=== PATIENT | female | born 1975 | race Caucasian/White ===

== ENCOUNTER 2023-04-29 09:20 | Outpatient (OUT) | payer OTHER, SELFPAY ==
[2023-04-29 09:48] LABS: Basophils Absolute Auto 0.1 10^3/uL (0.0-0.1); Basophils Percent Auto 0.8 % (0.2-2.0); Eosinophils Absolute Auto 0.2 10^3/uL (0.0-0.7); Eosinophils Percent Auto 2.3 % (0.9-7.0); Hematocrit 38.8 % (36.0-48.0); Hemoglobin 12.8 g/dL (12.0-16.0); Immature Granulocytes Abs Auto 0.02 10^3/uL (0.00-0.03); Immature Granulocytes Pct Auto 0.3 % (0.0-0.5); Lymphocytes Percent Auto 15.3 % (20.5-60.0); Mean Corpuscular Hemoglobin 31.7 pg (26.7-34.0); Mean Platelet Volume 9.2 fL (9.5-13.5); Monocytes Absolute Auto 0.5 10^3/uL (0.3-0.8); Monocytes Percent Auto 8.4 % (1.7-12.0); Neutrophils Absolute Auto 4.7 10^3/uL (1.4-6.5); Neutrophils Percent Auto 72.9 % (43.0-75.0); Platelet Count 247 10^3/uL (150-450); Red Blood Count 4.04 10^6/uL (4.20-5.40); Red Cell Distribution Width 12.3 % (11.0-15.0); White Blood Count 6.5 10^3/uL (4.0-11.0)
[2023-04-29 10:48] LABS: Alanine Aminotransferase 24 U/L (14-59); Albumin Globulin Ratio 1.1; Albumin Level 3.8 g/dL (3.4-5.0); Alkaline Phosphatase 80 U/L (46-116); Anion Gap 9.3; Aspartate Amino Transferase 21 U/L (15-37); BUN Creatinine Ratio 15.6; Bilirubin Total 0.4 mg/dL (0.2-1.0); Calcium 8.6 mg/dL (8.5-10.1); Carbon Dioxide 29.8 mmol/L (21.0-32.0); Chloride 104 mmol/L (98-107); Chol HDL Ratio 3.2; Cholesterol 235 mg/dL (<=200); Estimated GFR (African America >60 (>=60); Estimated GFR (Non-African Ame >60 (>=60); Globulin 3.4 g/dL; Glucose 82 mg/dL (74-106); HDL Cholesterol 74 mg/dL (40-60); Potassium 4.1 mmol/L (3.5-5.1); Sodium 139 mmol/L (136-145); Thyroid Stimulating Hormone 1.477 uIU/mL (0.358-3.740); Total Protein 7.2 g/dL (6.4-8.2); Triglycerides 52 mg/dL (<=150); VLDL CHOLESTEROL 10.4 mg/dL
== END 2023-04-29 09:21 | disposition home or self-care (01) ==
LOC: LAB 09:23
PROVIDERS: PCP Internal Medicine; Visit Provider Internal Medicine
DX: Z00.00 Encounter for general adult medical examination without abnormal findings (principal)
CPT/HCPCS: 36415; 80053; 80061; 84443; 85025

== ENCOUNTER 2023-06-21 10:39 | Outpatient (OUT) | payer OTHER, SELFPAY ==
--- NOTE | 2023-06-21 10:41 | MM_ITS ---
Patient: KATE KWON Exam Date: 06/21/2023 : 1975 Gender:F Ordering : DR Rodri Lai D.O. Admission #: [id number] Family : Order #: [id number] CLICK HERE TO VIEW EXAM RADIOLOGY REPORT PROCEDURE: MM TOMOSYNTHESIS SCREENING BI COMPARISON: MG MAMM SCREEN 3D [place] CAD, 06/17/2022. INDICATIONS: Screening mammogram Z12.31 Calculator Name NCI Breast Cancer Risk Assessment Tool 5 Year Breast Cancer Risk 1.00% Lifetime Breast Cancer Risk 10.00% Personal Breast Cancer No Personal Ovarian Cancer No Treatments None Family Cancers Aunt-maternal with uterine cancer at age ~62. LOCATION: [facility] BREAST COMPOSITION: Heterogeneously dense, which may obscure small masses. FINDINGS: DIAGNOSTIC CATEGORY 1--NEGATIVE. NO CHANGE FROM COMPARISON ASSESSMENT. RIGHT BREAST: No significant suspicious finding. LEFT BREAST: No significant suspicious finding. RECOMMENDATIONS: ROUTINE MAMMOGRAM AND CLINICAL EVALUATION IN 12 MONTHS. PLEASE NOTE: A NORMAL MAMMOGRAM DOES NOT EXCLUDE THE POSSIBILITY OF BREAST CANCER. A CLINICALLY SUSPICIOUS PALPABLE LUMP SHOULD BE BIOPSIED. Dictated by: Zion Hunter MD on 06/21/2023 at 11:41 Approved by: Zion Hunter MD on 06/21/2023 at 11:56
== END 2023-06-21 10:40 | disposition home or self-care (01) ==
LOC: MAMMO 10:40
PROVIDERS: PCP Internal Medicine; Visit Provider Internal Medicine
DX: Z12.31 Encounter for screening mammogram for malignant neoplasm of breast (principal); Z80.8 Family history of malignant neoplasm of other organs or systems
CPT/HCPCS: 77063; 77067

== ENCOUNTER 2024-05-07 09:21 | Outpatient (OUT) | payer OTHER, SELFPAY ==
[2024-05-07 10:20] LABS: Estimated Average Glucose 97 mg/dL
[2024-05-07 10:29] LABS: Basophils Percent Auto 0.4 % (0.2-2.0); Eosinophils Absolute Auto 0.2 10^3/uL (0.0-0.7); Hematocrit 42.8 % (36.0-48.0); Hemoglobin 14.2 g/dL (12.0-16.0); Immature Granulocytes Abs Auto 0.02 10^3/uL (0.00-0.03); Immature Granulocytes Pct Auto 0.3 % (0.0-0.5); Lymphocytes Absolute Auto 1.7 10^3/uL (1.2-3.8); Lymphocytes Percent Auto 22.6 % (20.5-60.0); Mean Corpuscular HGB Conc 33.2 g/dL (29.9-35.2); Mean Corpuscular Hemoglobin 31.8 pg (26.7-34.0); Mean Corpuscular Volume 95.7 fL (81.0-99.0); Mean Platelet Volume 9.5 fL (9.5-13.5); Monocytes Absolute Auto 0.6 10^3/uL (0.3-0.8); Monocytes Percent Auto 7.8 % (1.7-12.0); Neutrophils Percent Auto 66.9 % (43.0-75.0); Platelet Count 289 10^3/uL (150-450); Red Blood Count 4.47 10^6/uL (4.20-5.40); Red Cell Distribution Width 12.8 % (11.0-15.0); White Blood Count 7.5 10^3/uL (4.0-11.0)
[2024-05-07 10:36] LABS: Alanine Aminotransferase 34 U/L (14-59); Albumin Globulin Ratio 1.1; Alkaline Phosphatase 92 U/L (46-116); Anion Gap 10.6; Aspartate Amino Transferase 21 U/L (15-37); BUN Creatinine Ratio 14.5; Bilirubin Total 0.4 mg/dL (0.2-1.0); Calcium 9.4 mg/dL (8.5-10.1); Carbon Dioxide 32.4 mmol/L (21.0-32.0); Chloride 101 mmol/L (98-107); Chol HDL Ratio 2.8; Cholesterol 199 mg/dL (<=200); Estimated GFR (African America >60 (>=60); Estimated GFR (Non-African Ame >60 (>=60); Globulin 3.7 g/dL; Glucose 87 mg/dL (74-106); HDL Cholesterol 71 mg/dL (40-60); Sodium 140 mmol/L (136-145); Thyroid Stimulating Hormone 0.183 uIU/mL (0.358-3.740); Total Protein 7.7 g/dL (6.4-8.2); Triglycerides 50 mg/dL (<=150)
== END 2024-05-07 09:22 | disposition home or self-care (01) ==
LOC: LAB 09:23
PROVIDERS: PCP Internal Medicine; Visit Provider Internal Medicine
DX: Z00.00 Encounter for general adult medical examination without abnormal findings (principal)
CPT/HCPCS: 36415; 80053; 80061; 82728; 83036; 84443; 85025

== ENCOUNTER 2024-07-17 17:43 | Outpatient (OUT) | payer OTHER, SELFPAY ==
--- NOTE | 2024-07-17 18:20 | MM_ITS ---
Patient Name: KATE KWON MR#: [id number] : 1975 Exam Date: 07/17/2024 Ordering Doctor: DR Rodri Lai D.O. RADIOLOGY REPORT PROCEDURE: MM TOMOSYNTHESIS SCREENING BI COMPARISON: MG MAMM SCREEN 3D [place] CAD, 06/17/2022. MM TOMOSYNTHESIS SCREENING BI, 06/21/2023. INDICATIONS: Screening Calculator Name NCI Breast Cancer Risk Assessment Tool 5 Year Breast Cancer Risk 1.10% Lifetime Breast Cancer Risk 9.90% Personal Breast Cancer No Personal Ovarian Cancer No Treatments None Family Cancers Aunt-maternal with uterine cancer at age ~62. LOCATION: [facility] BREAST COMPOSITION: The breasts are heterogeneously dense,which may obscure small masses. FINDINGS: DIAGNOSTIC CATEGORY 1--NEGATIVE. NO CHANGE FROM COMPARISON ASSESSMENT. RIGHT BREAST: No significant suspicious finding. LEFT BREAST: No significant suspicious finding. RECOMMENDATIONS: ROUTINE MAMMOGRAM AND CLINICAL EVALUATION IN 12 MONTHS. PLEASE NOTE: A NORMAL MAMMOGRAM DOES NOT EXCLUDE THE POSSIBILITY OF BREAST CANCER. A CLINICALLY SUSPICIOUS PALPABLE LUMP SHOULD BE BIOPSIED. Dictated by: Zion Hunter MD on 07/18/2024 at 08:02 Approved by: Zion Hunter MD on 07/18/2024 at 08:03
== END 2024-07-17 17:44 | disposition home or self-care (01) ==
LOC: MAMMO 17:43
PROVIDERS: PCP Internal Medicine; Visit Provider Internal Medicine
DX: Z12.31 Encounter for screening mammogram for malignant neoplasm of breast (principal); Z80.8 Family history of malignant neoplasm of other organs or systems
CPT/HCPCS: 77063; 77067

== ENCOUNTER 2025-05-08 09:11 | Outpatient (OUT) | payer OTHER, SELFPAY ==
[2025-05-08 09:37] LABS: Hematocrit 40.6 % (36.0-48.0); Hemoglobin 14.1 g/dL (12.0-16.0); Immature Granulocytes Abs Auto 0.04 10^3/uL (0.00-0.03); Immature Granulocytes Pct Auto 0.4 % (0.0-0.5); Lymphocytes Absolute Auto 1.9 10^3/uL (1.2-3.8); Mean Corpuscular HGB Conc 34.7 g/dL (29.9-35.2); Mean Corpuscular Hemoglobin 32.2 pg (26.7-34.0); Mean Corpuscular Volume 92.7 fL (81.0-99.0); Platelet Count 248 10^3/uL (150-450); Red Blood Count 4.38 10^6/uL (4.20-5.40); White Blood Count 9.6 10^3/uL (4.0-11.0)
[2025-05-08 10:43] LABS: Alanine Aminotransferase 21 U/L (14-59); Albumin Globulin Ratio 1.1; Albumin Level 3.8 g/dL (3.4-5.0); Alkaline Phosphatase 85 U/L (46-116); Anion Gap 13.6; Aspartate Amino Transferase 14 U/L (15-37); Blood Urea Nitrogen 11.0 mg/dL (7.0-18.0); Calcium 9.2 mg/dL (8.5-10.1); Carbon Dioxide 29.4 mmol/L (21.0-32.0); Chloride 101 mmol/L (98-107); Cholesterol 212 mg/dL (<=200); Estimated GFR (African America >60 (>=60 mL/min/1.73m^2); Estimated GFR (Non-African Ame >60 (>=60 mL/min/1.73m^2); Globulin 3.5 g/dL; Glucose 86 mg/dL (74-106); HDL Cholesterol 70 mg/dL (40-60); Potassium 4.0 mmol/L (3.5-5.1); Sodium 140 mmol/L (136-145); Thyroid Stimulating Hormone 0.844 uIU/mL (0.358-3.740); Total Protein 7.3 g/dL (6.4-8.2); Triglycerides 53 mg/dL (<=150); VLDL CHOLESTEROL 10.6 mg/dL
== END 2025-05-08 09:12 | disposition home or self-care (01) ==
LOC: LAB 09:14
PROVIDERS: PCP Internal Medicine; Visit Provider Internal Medicine
DX: Z00.00 Encounter for general adult medical examination without abnormal findings (principal)
CPT/HCPCS: 36415; 80053; 80061; 82728; 84443; 85025

== ENCOUNTER 2025-07-23 15:48 | Outpatient (OUT) | payer OTHER, SELFPAY ==
--- NOTE | 2025-07-23 15:51 | MM_ITS ---
Patient Name: KATE KWON MR#: [id number] : 1975 Exam Date: 07/23/2025 Ordering Doctor: DR KATHERINE CHAMBERS D.O. RADIOLOGY REPORT PROCEDURE: MM TOMOSYNTHESIS SCREENING BI COMPARISON: MM TOMOSYNTHESIS SCREENING BI, 07/17/2024. MM TOMOSYNTHESIS SCREENING BI, 06/21/2023. MG MAMM SCREEN 3D [place] CAD, 06/17/2022. MG MAMM SCREEN [place] W CAD, 04/21/2019. INDICATIONS: Screening Calculator Name NCI Breast Cancer Risk Assessment Tool 5 Year Breast Cancer Risk 1.10% Lifetime Breast Cancer Risk 9.70% Personal Breast Cancer No Personal Ovarian Cancer No Treatments None Family Cancers Aunt-maternal with uterine cancer at age ~62. LOCATION: [facility] BREAST COMPOSITION: The breasts are heterogeneously dense, which may obscure small masses. FINDINGS: RIGHT BREAST: No significant suspicious finding. LEFT BREAST: No significant suspicious finding. DIAGNOSTIC CATEGORY 1--NEGATIVE. NO CHANGE FROM COMPARISON ASSESSMENT. RECOMMENDATIONS: ROUTINE MAMMOGRAM AND CLINICAL EVALUATION IN 12 MONTHS. Dictated by: Willy Alcantar MD on 07/24/2025 at 14:34 Approved by: Willy Alcantar MD on 07/24/2025 at 14:51
--- OUTSIDE RECORDS SUMMARY | 2025-07-23 15:54 | XMS_ITS | CCD ---
Author Organization [facility] CliniSynv Care Team Providers Care Vice President Financial Name Role Phone REYES, DR MURPHY Primary Care Unavailable BALL, DR MURPHY Attending Unavailable BALL, DR MURPHY Admitting Unavailable WEST, DR LUIS Small Consulting Unavailable BALL, DR MURPHY Primary Care Unavailable WEST, DR LUIS Small Attending Unavailable WEST, DR LUIS Small Admtree Unavailable ZIEBER, DR TATE Gtz Consulting Unavailable WEST, DR LUIS Small Consulting Unavailable BALL, DR MURPHY Primary Care Unavailable WEST, DR LUIS Small Attending Unavailable WEST, DR LUIS Small Admtree Unavailable WEST, DR LUIS Small Consulting Unavailable BALL, DR MURPHY Primary Care Unavailable WEST, DR LUIS Small Attending Unavailable WEST, DR LUIS Smlal Admtree Unavailable BALL, DR MURPHY Consulting Unavailable BALL, DR MURPHY Primary Care Unavailable BALL, DR MURPHY Attending Unavailable BALL, DR MURPHY Admitting Unavailable ZIEBER, DR TATE Gtz Consulting Unavailable WEST, DR LUIS Small Consulting Unavailable BALL, DR MURPHY Primary Care Unavailable WEST, DR LUIS Small Attending Unavailable WEST, DR LUIS Small Admtree Unavailable WEST, DR LUIS Small Consulting Unavailable BALL, DR MURPHY Primary Care Unavailable WEST, DR LUIS Small Attending Unavailable WEST, DR LUIS Small Admtree Unavailable WEST, DR LUIS Small Consulting Unavailable BALL, DR MURPHY Primary Care Unavailable WEST, DR LUIS Small Attending Unavailable WEST, DR LUIS Small Admtree Unavailable WEST, DR LUIS Small Consulting Unavailable BALL, DR MURPHY Primary Care Unavailable WEST, DR LUIS Small Attending Unavailable WEST, DR LUIS Small Admitting Unavailable KARASIK, DR FRANCO Consulting Unavailable BALL, DR MURPHY Primary Care Unavailable KARASIK, DR FRANCO Attending Unavailable KARASIK, DR SALVADOR Hoover Unavailable BALL, DR MURPHY Consulting Unavailable BALL, DR MURPHY Primary Care Unavailable BALL, DR MURPHY Attending Unavailable BALL, DR MURPHY Admitting Unavailable WEST, DR LUIS Small Consulting Unavailable BALL, DR MURPHY Consulting Unavailable BALL, DR MURPHY Primary Care Unavailable BALL, DR MURPHY Attending Unavailable BALL, DR MURPHY Admitting Unavailable BALL, DR MURPHY Consulting Unavailable BALL, DR MURPHY Primary Care Unavailable BALL, DR MURPHY Attending Unavailable BALL, DR MURPHY Admitting Unavailable Rodri Lai Unavailable Rodri Lai MD Primary Care Provider JOAN DUFFY Attending Unavailable Rodri Lai DO Primary Care Provider [phone] Rodri Lai DO Attending Provider RODRI LAI Primary Care Physician Chuyita Sanches. Admitting Unavailable Chuyita Snaches Attending Unavailable Chuyita Sanches Referring Unavailable Chuyita Sanches. Attending Unavailable Chuyita Sanches Admitting Unavailable Chuyita Sanches. Attending Unavailable Allergies Allergy Classification Reported Allergen(s) Allergy Type Date of Onset Reaction(s) Facility (1 source) Amoxicillin / Clavulanate Drug Allergy [facility] [employer] Other (5 sources) Amoxicillin Drug Allergy 4 stomach upset [facility] (5 sources) Clavulanate Drug Allergy 4 [facility] Medications Current Medications Medication Drug Class(es) Dates Sig (Normalized) Sig (Original) diclofenac sodium 75 mg delayed release oral tablet (10 sources) Nonsteroidal Anti-inflammatory Drug Start: 01-16-2024 End: 01-16-2024 take 1 tablet by mouth twice daily hyoscyamine sulfate 0.125 mg oral tablet (1 source) Start: 05-15-2025 take 1 tablet by mouth four times daily as needed for muscle spasms Levsin 0.125 mg SL Tab 0.125 mg = 1 tab(s), Oral, QID, PRN for spasm, # 40 tab(s), Refills(s) 0, Pharmacy: [id number], 165.1, cm, 05/15/25 14:06:00 EDT, Height/Length Dosing, 83.6, kg, 05/15/25 14:06:00 EDT, Weight Dosing Start Date: 05/15/25 Status: Ordered Quantity: 40.0 Unit: tab(s) Repeat number: 1 Indications: Unspecified abdominal pain; Change in bowel habit; Abdominal distension (gaseous); Encounter for screening for malignant neoplasm of colon; levothyroxine sodium 0.088 mg oral tablet (15 sources) l-Thyroxine Start: 03-16-2024 End: 03-20-2025 take 1 tablet by mouth once daily Start: 02-23-2024 End: 03-16-2024 take 1 capsule by mouth once daily Levothyroxine 88 mcg capsule Discontinued 88 MCG PO Daily February 23, 2024 12:00am March 16, 2024 1:19pm Start: 09-20-2023 take 1 tablet by epifanio th in the morning levothyroxine (Synthroid, Levoxyl) 88 MCG tablet Take 88 mcg by mouth in the morning. Take on an empty stomach.. 09/20/2023 Active Start: 04-11-2019 take 1 tablet by epifanio th once daily levothyroxine 75 mcg (0.075 mg) Tab 75 microgram = 1 tab(s), Oral, Daily, # 30 tab(s), Refills(s) 0 Start Date: 04/11/19 Status: Ordered Quantity: 30.0 Unit: tab(s) Repeat number: 1 tiZANidine 4 mg oral capsule (10 sources) Central alpha-2 Adrenergic Agonist Start: 01-16-2024 End: 01-16-2024 take 1 capsule by mouth once daily at bedtime Completed/Discontinued Medications Medication Drug Class(es) Dates Sig (Normalized) Sig (Original) amoxicillin 875 mg oral tablet (5 sources) Penicillin-class Antibacterial Start: 02-23-2024 End: 05-07-2024 take 1 tablet by mouth twice daily Amoxicillin 875 mg tablet Discontinued 875 MG PO Twice daily 10 February 23, 2024 12:00am May 07, 2024 8:21am amoxicillin 875 mg / clavulanate 125 mg oral tablet (1 source) Penicillin-class Antibacterial take 1 tablet by mouth every twelve hours citalopram 40 mg oral tablet (18 sources) Serotonin Reuptake Inhibitor Start: 04-12-2024 End: 04-17-2025 take 1 tablet by mouth once daily at bedtime Citalopram 40 mg tablet Discontinued 0 .ROUTE .COMPLEX October 03, 2024 1:37pm April 17, 2025 7:22am TAKE 1 TABLET BY MOUTH EVERYDAY AT BEDTIME Start: 09-20-2023 End: 04-12-2024 take 1 tablet by mouth once daily Citalopram 40 mg tablet Discontinued 40 MG PO Daily February 23, 2024 12:00am April 12, 2024 7:30am Start: 04-11-2019 citalopram Ref ills(s) 0 Start Date: 04/11/19 Status: Ordered Repeat number: 1 Problems Active Problems Problem Classification Problem Date Documented Da te Episodic/Chronic Abdominal pain (1 source) Abdominal pain; Translations: [Unspecified abdominal pain] Onset: 05-14-2025 Episodic Anxiety disorders (10 sources) Generalized anxiety disorder; Translations: [Generalized anxiety disorder] Chronic Contraceptive and procreative management (1 source) Oral contraception 04-14-2020 Episodic Disorders of lipid metabolism (11 sources) Hypercholesterolemia ; Translations: [Pure hypercholesterolemia , unspecified] Chronic Esophageal disorders (8 sources) Gastro-esophageal reflux disease with esophagitis; Translations: [Gastroesophageal reflux disease with esophagitis without hemorrhage] Onset: 02-25-2017 05-02-2024 Chronic Immunizations and screening for infectious disease (1 source) Encounter for screening for human papillomavirus (HPV); Translations: [ENC SCREENING HUMAN PAPILLOMAVIRUS] Onset: 06-25-2022 Episodic Menopausal disorders (2 sources) Menopausal flushing; Translations: [Menopausal and female climacteric states] 10-08-2024 Chronic Menstrual disorders (2 sources) Irregular periods; Translations: [Irregular menstruation, unspecified] 10-08-2024 Chronic Other gastrointestinal disorders (1 source) Altered bowel function; Translations: [Change in bowel habit] Onset: 05-14-2025 Episodic Other gastrointestinal disorders (1 source) Swollen abdomen; Translations: [Abdominal distension (gaseous)] Onset: 05-15-2025 Episodic Other gastrointestinal disorders (1 source) Abdominal bloating 05-15-2025 Episodic Other nutritional; endocrine; and metabolic disorders (1 source) Body mass index 30+ - obesity; Translations: [Body mass index (BMI) 30.0-30.9, adult] Chronic Other nutritional; endocrine; and metabolic disorders (1 source) Obesity caused by energy imbalance; Translations: [Other obesity due to excess calories] Chronic Other nutritional; endocrine; and metabolic disorders (1 source) Other obesity due to excess calories Chronic Other nutritional; endocrine; and metabolic disorders (1 source) Body mass index (BMI) 30.0-30.9, adult Chronic Other screening for suspected conditions (not mental disorders or infectious disease) (16 sources) Encounter for screening for malignant neoplasm of cervix; Translations: [Encounter for screening mammogram for malignant neoplasm of breast] Onset: 06-17-2022 Episodic Other upper respiratory disease (1 source) Allergic rhinitis, unspecified; Translations: [Allergic rhinitis, cause unspecified] 02-23-2024 Chronic Other upper respiratory infections (1 source) Chronic sinusitis, unspecified; Translations: [Unspecified sinusitis (chronic)] 02-23-2024 Chronic Residual codes; unclassified (1 source) Family history of malignant neoplasm of other genital organs; Translations: [FAM HX MALIG NEOPLSM OTH GENIT ORGN] Onset: 06-18-2022 Episodic Retinal detachments; defects; vascular occlusion; and retinopathy (2 sources) Retinal flame hemorrhage; Translations: [Retinal hemorrhage, unspecified eye] 01-14-2025 Chronic Spondylosis; intervertebral disc disorders; other back problems (5 sources) Lumbar spondylosis; Translations: [Spondylosis without myelopathy or radiculopathy, lumbar region] 05-02-2024 Chronic Thyroid disorders (13 sources) Autoimmune hypothyroidism; Translations: [Hypothyroidism, unspecified] Chronic Unclassified (5 sources) Patient encounter status; Translations: [Z12.11 - Encounter for screening for malignant neoplasm of colon] Past or Other Problems Problem Classification Problem Date Documented Da te Episodic/Chronic Phlebitis; thrombophlebitis and thromboembolism (8 sources) Phlebitis and thrombophlebitis of superficial vessels of left lower extremity; Translations: [Phlebitis and thrombophlebitis of superficial vessels of right lower extremity] Onset: 2 Episodic Varicose veins of lower extremity (4 sources) Varicose veins of bilateral lower extremities with pain; Translations: [VARICOSE VNS [place] LOW EXTREM W/PAIN] Onset: 2 Episodic Results Test Name Value Interpretation Reference Range Facility Provider Letteron 06-27-2025 Provider Letter Provider Letter June 27, 2025 KATE CALHOUN [address] [place] [id number] : 1975 Dear Kate, We have been trying to reach you with no success. It is important that you return our call regarding a follow up from your procedure with Dr. Sanches. Please call the office to schedule a appointment upon receiving this letter. Also, at the time of your call, please provide us with your current information. Thank you for your prompt attention to this matter. Sincerely, [facility] [address], [address] [place], [place] [address] [phone] Normal [facility] Reminderson 06-10-2025 Reminders Reminders From: Kay Simon To: PENDING SALE TO [facility] - Reminders/Recalls; Sent: 06/10/2025 16:10:14 EDT Show up: 04/26/2035 16:09:00 EDT Subject: Ambulatory Reminder- colonoscopy 10 years Due Date/Time: 05/27/2035 16:09:00 EDT Reminder/Recall Colonoscopy 05/27/25 Dr Sanches 10 year recall Normal [facility] Surgical Pathology Reporton 05-31-2025 Surgical Pathology Report [facility] [address] [address]- Surgical Pathology Report Collected Date/Time: 05/27/2025 08:50 EDT Pathologist: Ulysses LING PhD, Elizabeth Balderas Received Date/Time: 05/27/2025 10:40 EDT Myron LING, Chuyita Sanches MD, Chuyita Waterman Surgical Pathology Report - 05/31/2025 12:40 EDT - Auth (Verified) Final Diagnosis A: STOMACH, BIOPSY: - GASTRIC MUCOSA WITH MILD CHRONIC INFLAMMATION IN LAMINA PROPRIA. - NO INTESTINAL METAPLASIA IDENTIFIED. - NO H. PYLORI MICROORGANISMS IDENTIFIED WITH IMMUNOSTAIN. B: DUODENUM, BIOPSY: - DUODENAL MUCOSA WITHIN NORMAL LIMITS. (Electronic Signature) Elizabeth Arora MD PhD 05/31/2025 12:40 Clinical Information Bloating, left sided abdominal pain, screening Pre-Op Diagnosis: Bloating, left sided abdominal pain, screening Procedure: EGD Post-Op Diagnoses: 1. Diverticulosis 2. Internal hemorrhoids 3. Erosive gastropathy 4. Hiatal hernia 5. Reflux esophagitis Specimen(s) Received A: Gastric biopsy B: Duodenal biopsy Gross Description A: Received in formalin, labeled with patient name, number and gastric biopsy are three fragments of tuttle-pink tissue measuring from less than 0.1 cm, up to 0.1 cm. Specimen is entirely submitted in one cassette. B: Received in formalin, labeled with patient name, number and duodenal biopsy are four fragments of tuttle-pink tissue ranging from 0.1 cm, up to 0.2 cm in greatest dimension. Specimen is entirely submitted in one cassette. (DC) DC:JEET Microscopic Description The use of one or more reagents in the above tests is regulated as an analyte specific reagent (ASR). The test or tests are ordered following initial H&E microscopic examination. The performance characteristics were determined by the Laboratory of [facility] Surgical Pathology. They have not been cleared or approved by the US Food and Drug Administration. The FDA has determined that such clearance or approval is not necessary. These tests are used for clinical purposes. They should not be regarded as investigational or for research. Appropriate positive and negative controls are performed and are acceptable. This report was transcribed using voice recognition technology and might contain unintended computerized park ranger errors. Microscopic examination performed unless gross only specified. Quality was accessed and acceptable. Normal [facility] Comment on above: Performed By: #### [id number] #### [facility] [address] [place] [address] Main OR Intraoperative Recor don 05-28-2025 Main OR Intraoperative Record Main OR Intraoperative Record IntraOp Document Type FT Summary Primary Physician: Chuyita Sanches MD Finalized Date/Time: 05/28/25 12:10:21 Pt. Name: ALISON CALHOUNKATE/Sex: 1975 Female Med Rec #: [id number] Physician: Chuyita Sanches MD Financial #: [id number] Pt. Type: O Room/Bed: / Admit/Disch: 05/27/25 07:20:57 - 05/27/25 23:59:59 Institution: Case Times FT Entry 1 Patient Times In Room 05/27/25 08:43:00 Out Room 05/27/25 09:08:00 Procedure Times Start 05/27/25 08:49:00 Stop 05/27/25 09:06:00 Anesthesia Times Start 05/27/25 08:43:00 Stop 05/27/25 09:08:00 Time at [facility] 05/27/25 08:58:00 Last Modified By: Teresa MILLER, Dee 05/27/25 09:08:39 General Comments: 0853-EGD completed/AW RN 0855-Colonoscopy started/AW RN Case Attendance FT Entry 1 Entry 2 Entry 3 Case Attendee Bhupendra JUDGE CRNA, Queen Miles, Tara Chou SAS PROGRAMMER ANALYST, Janine Cole Role Performed ICING MIXER Staff - Other Scrub - Primary Time In 05/27/25 08:43:00 05/27/25 08:43:00 05/27/25 08:43:00 Time Out 05/27/25 09:08:00 05/27/25 09:08:00 05/27/25 09:08:00 Procedure EGD AND COLONOSCOPY(.) EGD AND COLONOSCOPY(.) EGD AND COLONOSCOPY(.) Comments Dr. Fernando supervising help in room Last Modified By: Teresa RN, Dee Moore RN, Dee Moore RN, Dee 05/27/25 09:08:40 05/27/25 09:08:40 05/27/25 09:08:40 Entry 4 Entry 5 Case Attendee Myron LING, Chuyita Moore RN, Dee Role Performed Surgeon - Primary Clam Bed Laborer - Primary Time In 05/27/25 08:43:00 05/27/25 08:43:00 Time Out 05/27/25 09:08:00 05/27/25 09:08:00 Procedure EGD AND COLONOSCOPY(.) EGD AND COLONOSCOPY(.) Comments Last Modified By: Teresa MILLER, Dee Moore RN, Dee 05/27/25 09:08:40 05/27/25 09:08:40 Perioperative Protocols FT Pre-Care Text: Implements protective measures prior to operative or invasive procedure, confirms identity before the operative or invasive procedure, verifies operative procedure, surgical site, and laterality Entry 1 Procedure(s) EGD AND COLONOSCOPY(.) Patient Identity Birthday, ID Band Verified (select at Check, Patient least 2): Participation Consents / H and P Anesthesia Consent, Operative Site N/A Verified H&P, Surgery/Procedure Marking Verified Consent Surgical Site No Laterality Verified n/a Verified Procedure Verified Yes Correct Patient Yes Position Verified Availability Equipment, Medication Prep Dry n/a Verified (If Applicable) PreOp Antibiotic No Time Out Bhupendra JUDGE CRNA, Queen Given Participants N., Tara Vasquez, José Antonio SAS PROGRAMMER ANALYST, Myron Mercedes MD, Chuyita Hoover, Dee Moore RN Time Out Complete 05/27/25 08:45:00 Outcomes Met? Yes Last Modified By: Dee Moore RN 05/27/25 08:53:21 Post-Care Text: The patient is free from signs and symptoms of injury caused by extraneous objects Allergy Information FT Pre-Care Text: Verifies allergies Entry 1 Allergies Reviewed? Yes Allergies Reviewed Self/Patient With Outcomes Met? Yes Last Modified By: Dee Moore RN 05/27/25 08:54:10 Post-Care Text: The patient received appropriate medication(s) safely administered during the perioperative period Surgical Procedures FT Entry 1 Procedure Description Procedure EGD AND COLONOSCOPY Modifiers . Surgeon Description EGD with duodenal and gastric biopsies. Colonoscopy Primary Procedure Yes Primary Surgeon Myron LING, Chuyita Hoover Start 05/27/25 08:49:00 Stop 05/27/25 09:06:00 Anesthesia Type General Surgical Service Gastroenterology Wound Class 2 - Clean-Contaminated Last Modified By: Dee Moore RN 05/27/25 09:08:22 General Case Data FT Pre-Care Text: Classifies surgical wound, implements aseptic technique, initiates traffic control Entry 1 Case Information OR ENDO 1 FT Case Level Level 2 Wound Class 2 - Clean-Contaminated Specialty Gastroenterology ASA Class 2 Preop Diagnosis Bloating, left sided Postop Same As Preop No abdominal pain, screening Postop Diagnosis EGd- hiatal hernia, Outcomes Met? Yes gastropathy, reflux esophagitis. Colonoscopy-diverticulos is Last Modified By: Dee Moore RN 05/27/25 09:08:36 Post-Care Text: The patient is free from signs and symptoms of infection Skin Assessment (Pre Procedure) FT Pre-Care Text: Implements protective measures to prevent skin/ tissue injury due to thermal or mechanical sources Evaluates for signs and symptoms of physical injury to skin and tissue Entry 1 Skin Integrity Intact, [place], Warm, & Skin Abnormality No Dry Outcomes Met? Yes Last Modified By: Dee Moore RN 05/27/25 08:54:47 Post-Care Text: The patient is free from signs and symptoms of injury caused by extraneous objects Patient Positioning FT Pre-Care Text: Identifies physical alterations that require additional precautions for procedure-specific positioning, verifies presence of prosthetics or corrective devices, po (more content not included)... Normal [facility] Discharge Instructionson Discharge Instructions Discharge Instruc tions KATE SAMANO :1975 Visit Date:05/27/2025 Inpatient Discharge Instructions Your Care Team Admitting Physician - Chuyita Sanches MD Referring Physician - Chuyita Sanches MD Reason for Your Visit LEFT SIDED ABDOMINAL PAIN, CHANGE IN BOWEL HABITS, BLOATING, SCREEN FOR COLON CANCER Your Diagnosis Erosive gastropathy Hemorrhoids, internal Hernia, hiatal Tests Performed Pathology Tissue Exam -- Results Pending -- Please visit your patient portal for your results or contact your primary care physician. This Is Your Medications List citalopram esomeprazole (esomeprazole 40 mg oral powder for reconstitution, delayed release) hyoscyamine (Levsin 0.125 mg SL Tab) levothyroxine (levothyroxine 88 mcg (0.088 mg) Tab) Procedure History back surgery. Discharge Vitals Temperature (Temporal Artery) 36.7 ???C Heart Rate (Monitored) 65 Respiratory Rate 15 Blood Pressure 110/77 Height 165.1 cm Weight 83.6 kg BMI 30.67 What to do next Instructions From Your Doctor No qualifying data available. New Follow Up Appointments after Discharge Follow Up with Chuyita Sanches MD, [facility], [facility] When: Comments: Call office for Date and Time of Follow-up Appt if needed. Where: [address] [place], [place] [address], [address] [place] [phone] Medications What How Much When Why Instructions Next Dose New esomeprazole (esomeprazole 40 mg oral powder for reconstitution, delayed release) 1 Packets By Mouth Every day Refills: 3 Pickup at [facility] #[id number] Changed levothyroxine (levothyroxine 88 mcg (0.088 mg) Tab) 1 Tablets By Mouth Every day Unchanged citalopram 40 Milligram By Mouth Every day Unchanged hyoscyamine (Levsin 0.125 mg SL Tab) 1 Tablets By Mouth 4 times a day as needed for for spasm Left sided abdominal pain Change in bowel habits Bloating Screen for colon cancer Pharmacy Information [facility] #[id number]: [address], [place] [phone] Test Results No qualifying data available. Allergies No Known Allergies Problems Ongoing - Any problem that you are currently receiving treatment for. Bloating Oral contraceptive use Screen for colon cancer Education Materials Colonoscopy Care After Surgery Please read the instructions outlined below and refer to this sheet in the next few weeks. These discharge instructions provide you with general information on caring for yourself after you leave the hospital. Your doctor may also give you specific instructions. While your treatment has been planned according to the most current medical practices available, unavoidable complications occasionally occur. If you have any problems or questions after discharge, please call your doctor. ACTIVITY You may resume your regular activity, but move at a slower pace for the next 24 hours. Take frequent rest periods for the next 24 hours. Walking will help get rid of the air and reduce the bloated feeling in your abdomen (belly). No driving for 24 hours (because of the anesthesia (medicine) used during the test). You may shower. Do not sign any important legal documents or operate any machinery for 24 hours (because of the anesthesia used during the test). NUTRITION Drink plenty of fluids. You may resume your normal diet as instructed by your doctor. Begin with a light meal and progress to your normal diet. Heavy or fried foods are harder to digest and may make you feel nauseated (sick to your stomach). Avoid alcoholic beverages for 24 hours or as instructed. MEDICATIONS You may resume your normal medications unless your doctor tells you otherwise. WHAT YOU CAN EXPECT TODAY Some feelings of bloating in the abdomen. Passage of more gas than usual. Spotting of blood in your stool or on the toilet paper. FOLLOW-UP Your doctor will discuss the results of your test with you. SEEK IMMEDIATE MEDICAL ATTENTION IF: There is more than a spotting of blood in your stool. There is abdominal distention (your abdomen is swollen). There is vomiting. You have a temperature over 101.5 F. There is abdominal pain or discomfort that is severe or gets worse throughout the day. Hiatal Hernia A hiatal hernia occurs when part of the stomach slides above the muscle that separates the abdomen from the chest (diaphragm). A person can be born with a hiatal hernia (congenital), or it may develop over time. In almost all cases of hiatal hernia, only the top part of the stomach pushes through the diaphragm. Many people have a hiatal hernia with no symptoms. The larger the hernia, the more likely it is that you will have symptoms. In some cases, a hiatal hernia allows stomach acid to flow back into the tube that carries food from your mouth to your stomach (esophagus). This may cause heartburn symptoms. The development of heartburn symptoms may (more content not included)... Normal [facility] Comment on above: Result Comment: Elec tronically Signed By: Tru MILLER, Veronika\.br\Date and Time Signed: 05/27/25 09:28 EDT [facility]Don 05-27-2025 Esophagogastroduodenoscop y EGD Patient: KATE SAMANO Age: 49 years Sex: Female : 1975 Associated Diagnoses: None Author: Chuyita Sanches MD Pre-Procedure Procedure Date 05/27/2025 08:54:00 . Procedure Type: Esophagogastroduodenoscop y with biopsy. Procedure provider Performed by Chuyita Sanches MD. Current history and physical Documented on chart. Informed Consent After discussing the rationale, risks and benefits, and alternatives to this procedure, the patient provided signed consent for the procedure. Pre-procedure diagnosis: Bloating. Medications (Selected) Inpatient Medications Ordered Lactated Ringers IV Suzi 1000 mL 1,000 mL: 1,000 mL, IV, 100 mL/hr, Routine, Start date 05/27/25 7:30:00 EDT, 10 hour(s), Total volume (mL): 1,000, 83.6 kg, 1.96, m2 Sodium Chloride 0.9% IV Suzi 1000 mL 1,000 mL: 1,000 mL, IV, 20 mL/hr, Routine, Start date 05/27/25 6:44:00 EDT, 50 hour(s), Total volume (mL): 1,000, 83.6 kg, 1.96, m2 Zofran 4 mg/2 mL Injection: 4 mg = 2 mL, Injection, IV Push, Once PRN Nausea/Vomiting, Routine, Start date 05/27/25 7:30:00 EDT, 05/27/25 7:30:00 EDT promethazine additive 12.5 mg + Sodium Chloride 0.9% IV Suzi 50 mL (INT) 50 mL: Injection, IV Piggyback, Once PRN Nausea/Vomiting, Routine, Start date 05/27/25 7:30:00 EDT, 151.5 mL/hr, Infuse over 20 minute(s) Prescriptions Prescribed Levsin 0.125 mg SL Tab: 0.125 mg = 1 tab(s), Oral, QID, PRN for spasm, # 40 tab(s), Refills(s) 0, Pharmacy: [facility] #[id number], 165.1, cm, 05/15/25 14:06:00 EDT, Height/Length Dosing, 83.6, kg, 05/15/25 14:06:00 EDT, Weight Dosing Documented Medications Documented citalopram: 40 mg, Oral, Daily, Refills(s) 0, Depression levothyroxine 88 mcg (0.088 mg) Tab: 88 mcg = 1 tab(s), Oral, Daily, Refills(s) 0 Anticoagulant/antiplatele t None. ASA Classification: Class II. . Monitoring: See anesthesia record. . Procedure The procedure was performed in the hospital. See anesthesia record for sedation given during procedure. The patient was positioned starting in the left lateral decubitus position and with safety measures. Endoscope type used was an adult-size, introduced orally, advanced to the 3rd portion of the duodenum. No difficulty was encountered during the procedure. Views were excellent. The patient tolerated the procedure well. Findings 1. Widely open wound at the GE junction. Mild reflux apicitis. Hiatal hernia from 37-39 2. Erythema in the antrum, mild patchy with some erosions. Otherwise normal stomach. Biopsies of the stomach were taken to rule out H. pylori. 3. Normal duodenum. Images Procedure images: Rec_hd_video__ 08___202.jpg Rec_hd_video__ 08__[id number].jpg Rec_hd_video__40_[id number].jpg Rec1_hd_video__23_733.jpg Rec1_hd_video__21_450.jpg Rec1_hd_video__04_629.jpg Rec1_hd_video_ 08__54_[id number].jpg Rec1_hd_video__50_[id number].jpg Rec1_hd_video__38_[id number].jpg . Post-Procedure Complications: none. Estimated blood loss: minimal. Specimens: sent to pathology. Devices/ implants: none left in place. Impression and Plan erosive gastropathy Hiatal hernia Reflux esophagitis Recommendations: -Resume previous diet -Resume home medications -Avoid NSAIDs -Protonix 40 mg daily -Await pathology results, follow in GI clinic in 1-2 after discharge Widely open valve not wound Normal [facility] Comment on above: Other Comment: Odalys morse Attachment - attachment storage system not supported [id number] Can be viewed in source system Missing Attachment - attachment storage system not supported [id number] Can be viewed in source system Missing Attachment - attachment storage system not supported [id number] Can be viewed in source system Missing Attachment - attachment storage system not supported [id number] Can be viewed in source system Missing Attachment - attachment storage system not supported [id number] Can be viewed in source system Missing Attachment - attachment storage system not supported [id number] Can be viewed in source system Missing Attachment - attachment storage system not supported [id number] Can be viewed in source system Missing Attachment - attachment storage system not supported [id number] Can be viewed in source system Missing Attachment - attachment storage system not supported [id number] Can be viewed in source system H&P Updateon 05-27-2025 H&P Update H&P Update Patient: ALISON DAMIANKATE LAKHANI Age: 49 years Sex: Female : 1975 Associated Diagnoses: None Author: Myron LING, Chuyita Hoover Preoperative Information Chief compliant/Indication for procedure: Bloating, altered bowel habits Chief Complaint as above Review of Systems All systems reviewed, negative except as mentioned above Health Status Allergies: Allergic Reactions (Selected) No Known Allergies Current medications: (Selected) Inpatient Medications Ordered Lactated Ringers IV Suzi 1000 mL 1,000 mL: 1,000 mL, IV, 100 mL/hr, Routine, Start date 05/27/25 7:30:00 EDT, 10 hour(s), Total volume (mL): 1,000, 83.6 kg, 1.96, m2 Sodium Chloride 0.9% IV Suzi 1000 mL 1,000 mL: 1,000 mL, IV, 20 mL/hr, Routine, Start date 05/27/25 6:44:00 EDT, 50 hour(s), Total volume (mL): 1,000, 83.6 kg, 1.96, m2 Zofran 4 mg/2 mL Injection: 4 mg = 2 mL, Injection, IV Push, Once PRN Nausea/Vomiting, Routine, Start date 05/27/25 7:30:00 EDT, 05/27/25 7:30:00 EDT promethazine additive 12.5 mg + Sodium Chloride 0.9% IV Suzi 50 mL (INT) 50 mL: Injection, IV Piggyback, Once PRN Nausea/Vomiting, Routine, Start date 05/27/25 7:30:00 EDT, 151.5 mL/hr, Infuse over 20 minute(s) Prescriptions Prescribed Levsin 0.125 mg SL Tab: 0.125 mg = 1 tab(s), Oral, QID, PRN for spasm, # 40 tab(s), Refills(s) 0, Pharmacy: [facility] #[id number], 165.1, cm, 05/15/25 14:06:00 EDT, Height/Length Dosing, 83.6, kg, 05/15/25 14:06:00 EDT, Weight Dosing Documented Medications Documented citalopram: 40 mg, Oral, Daily, Refills(s) 0, Depression levothyroxine 88 mcg (0.088 mg) Tab: 88 mcg = 1 tab(s), Oral, Daily, Refills(s) 0 Problem list: All Problems Bloating / SNOMED CT 078207792 / Confirmed Oral contraceptive use / SNOMED CT 77143046 / Confirmed Screen for colon cancer / SNOMED CT 427116675 / Confirmed, Active Problems (3) Bloating Oral contraceptive use Screen for colon cancer Histories Past Medical History: No active or resolved past medical history items have been selected or recorded. Family History: Hypertension Father Sister Diabetes mellitus type 1 Mother Procedure history: back surgery. Physical Examination Vital Signs (last 24 hrs) Last Charted Temp Temporal 36.7 DegC (MAY 27:48) Heart Rate Monitored 65 bpm (MAY 27) Resp Rate 15 br/min (MAY 27) SBP 110 mmHg (MAY 27) DBP 77 mmHg (MAY 27) Weight 83.6 kg (MAY 27) BMI 30.67 (MAY 27) General: in Nad Abdomen: Soft, NTND Impression and Plan Diagnosis: Bloating, altered bowel habits -EGD and colonoscopy Normal [facility] Comment on above: Result Comment: Elec tronically Signed By: Chuyita Sanches MD\.br\Date and Time Signed: 05/27/25 08:53 EDT Main OR PACU I Recordon 05-17 Main OR PACU I Record Main OR PACU I Rec ord PACU Phase I Document Type FT Summary Primary Physician: Chuyita Sanches MD Finalized Date/Time: 05/27/25 10:35:48 Pt. Name: KATE SAMANO/Sex: 1975 Female Med Rec #: [id number] Physician: Chuyita Sanches MD Financial #: [id number] Pt. Type: O Room/Bed: / Admit/Disch: 05/27/25 07:20:57 - Institution: Case Times PACU I FT Pre-Care Text: Identifies barriers to communication and implements measures to provide psychological support Develops individualized plan of care, and ensures continuity of care Maintains patient's dignity and privacy, and maintains patient confidentiality Identifies and reports philosophical, cultural, and spiritual beliefs and values Identifies individual values and wishes concerning care Implements aseptic technique, and administers prescribed antibiotic therapy and immunizing agents as ordered Evaluates postoperative tissue perfusion Implements thermoregulation measures, and monitors body temperature Evaluates postoperative respiratory status Evaluates postoperative cardiac status Evaluates postoperative neurological status Assesses pain control, collaborated in initiating patient-controlled analgesia and implements alternative methods of pain control Verifies allergies, administers prescribed medications and solutions, evaluates response to medications Entry 1 In PACU I 05/27/25 09:10:00 Discharge from PACU 05/27/25 09:40:00 I Outcomes Met? Yes Last Modified By: Veronika Ott RN 05/27/25 10:35:34 Post-Care Text: The patient demonstrates knowledge of the expected response to the operative or invasive procedure The patient's care is consistent with the individualized perioperative plan of care The patient's right to privacy is maintained The patient's value system, lifestyle, ethnicity, and culture are considered, respected, and incorporated into the perioperative plan of care The patient participates in decisions affecting his or her perioperative plan of care The patient is free from signs and symptoms of infection The patient has wound/tissue perfusion consistent with or improved from baseline levels established preoperatively The patient is at or returning to normothermia at the conclusion of the immediate postoperative period The patient's respiratory function is consistent with or improved from baseline levels established preoperatively The patient's cardiovascular status is consistent with or improved from baseline levels established preoperatively The patient's cardiovascular status is consistent with or improved from baseline levels established preoperatively The patient demonstrates and/or reports adequate pain control throughout the perioperative period The patient received appropriate medication(s), safely administered during the perioperative period Acuity Level PACU I FT Entry 1 Start Time 05/27/25 09:10:00 Stop Time 05/27/25 09:40:00 Acuity Level Acuity Level I Last Modified By: Veronika Ott RN 05/27/25 10:35:47 Finalized By: Veronika Ott RN Document Signatures Signed By: Veronika Ott RN 05/27/25 10:35 Normal [facility] Main OR Preoperative Recordo n 05-27-2025 Main OR Preoperative Record Main OR Preoperative Record Holding Area Document Type FT Summary Primary Physician: Chuyita Sanches MD Finalized Date/Time: 05/27/25 07:48:20 Pt. Name: KATE SAMANO /Sex: 1975 Female Med Rec #: [id number] Physician: Chuyita Sanches MD Financial #: [id number] Pt. Type: O Room/Bed: / Admit/Disch: 05/27/25 07:20:57 - Institution: Case Times Holding FT Pre-Care Text: Verifies consent for planned procedure, identifies individual values and wishes concerning care, includes family members in perioperative teaching Secures patient's records' belongings, and valuables, maintains patient's dignity and privacy, and maintains patient confidentiality Entry 1 In Holding 05/27/25 07:28:00 Outcomes Met? Yes Last Modified By: Dejan Zhang RN 05/27/25 07:28:52 Post-Care Text: The patient participates in decisions affecting his or her perioperative plan of care The patient's right to privacy is maintained Surgery Checklist FT Entry 1 Patient Birthday, ID Band Procedure History and Physical, Identification: Check, Patient Verification: Surgical Consent, With Participation Patient NPO after Midnight: No Date/Time: 05/27/25 03:30:00 Results Reviewed yellow liquid bowel Personal Items: Glasses Comments: results Personal Items clothing, shoes, Limitations: none Comment: earrings Complaints of Pain: No Pain Comment: denies Operative Site n/a Marked By: n/a Marking: Location: n/a Availability Equipment Verified: Does Patient Smoke No Patient states Yes Comment - Adult Fiona- significant postop adult Supervision other supervision available Case Cancelled in No Holding Area see comments below for reason Last Modified By: Dejan Zhang RN 05/27/25 07:48:18 General Comments: PT. NPO since bowel prep finished at 0330/AW RN Finalized By: Dejan Zhang RN Document Signatures Signed By: Dejan Zhang RN 05/27/25 07:48 Normal [facility] Operative Reporton 5 Operative Report Operative Report Patient: KATE SAMANO Age: 49 years Sex: Female : 1975 Associated Diagnoses: None Author: Chuyita Sanches MD Pre-Procedure Procedure Date 05/27/2025 09:08:00 . Procedure Type: Colonoscopy. Procedure provider Performed by Chuyita Sanches MD. Current history and physical Documented on chart. back surgery.. Past Medical History No active or resolved past medical history items have been selected or recorded.. Family History Hypertension Father Sister Diabetes mellitus type 1 Mother . Procedure History back surgery.. Colorectal neoplasm risk assessment Average risk. Informed Consent After discussing the rationale, risks and benefits, and alternatives to this procedure, the patient provided signed consent for the procedure. Pre-procedure diagnosis: Diagnostic: Abdominal pain. Medications (Selected) Inpatient Medications Ordered Lactated Ringers IV Suzi 1000 mL 1,000 mL: 1,000 mL, IV, 100 mL/hr, Routine, Start date 05/27/25 7:30:00 EDT, 10 hour(s), Total volume (mL): 1,000, 83.6 kg, 1.96, m2 Sodium Chloride 0.9% IV Suzi 1000 mL 1,000 mL: 1,000 mL, IV, 20 mL/hr, Routine, Start date 05/27/25 6:44:00 EDT, 50 hour(s), Total volume (mL): 1,000, 83.6 kg, 1.96, m2 Zofran 4 mg/2 mL Injection: 4 mg = 2 mL, Injection, IV Push, Once PRN Nausea/Vomiting, Routine, Start date 05/27/25 7:30:00 EDT, 05/27/25 7:30:00 EDT promethazine additive 12.5 mg + Sodium Chloride 0.9% IV Suzi 50 mL (INT) 50 mL: Injection, IV Piggyback, Once PRN Nausea/Vomiting, Routine, Start date 05/27/25 7:30:00 EDT, 151.5 mL/hr, Infuse over 20 minute(s) Prescriptions Prescribed Levsin 0.125 mg SL Tab: 0.125 mg = 1 tab(s), Oral, QID, PRN for spasm, # 40 tab(s), Refills(s) 0, Pharmacy: [facility] #[id number], 165.1, cm, 05/15/25 14:06:00 EDT, Height/Length Dosing, 83.6, kg, 05/15/25 14:06:00 EDT, Weight Dosing Documented Medications Documented citalopram: 40 mg, Oral, Daily, Refills(s) 0, Depression levothyroxine 88 mcg (0.088 mg) Tab: 88 mcg = 1 tab(s), Oral, Daily, Refills(s) 0 ASA Classification: Class II. . Monitoring: See anesthesia record. . Procedure The procedure was performed in the hospital. See anesthesia record for sedation given during procedure. The patient was positioned starting in the left lateral decubitus position. Endoscope type used was a pediatric-size. The endoscope was lubricated then introduced through the anus. The scope was advanced to the terminal ileum. No difficulties encountered during the procedure. The bowel preparation quality was good and was adequate (see polyps greater than or equal to 6 millimeters). The patient tolerated the procedure well. Time to Cecum: 3 min Withdrawal time: 8 min Findings 1. Small internal hemorrhoids 2. Mild diverticulosis. Otherwise, normal colon 3. Normal terminal ileum Images Procedure images: Rec1_hd_video_2024__T 08_20_[id number].jpg Rec1_hd_video__T [id number]_[id number].jpg Rec1_hd_video__ 08_15_[id number].jpg Rec1_hd_video__ 08_13_[id number].jpg Rec1_hd_video__ 08_13_[id number].jpg . Post-Procedure Complications: none. Estimated blood loss: none. Specimens: none. Devices/ implants: none left in place. Impression and Plan diverticulosis Internal hemorrhoids Recommendations: Repeat colonoscopy:: In 10 years. Follow-up:: in clinic as scheduled. Diet:: Previous. Medication resumption:: Continue current medications, Avoid NSAIDs. Return to activities:: After 24 hours. Education and Follow-up: Counseled: Patient, Family. [facility] Comment on above: Result Comment: Elec tronically Signed By: Myron LING, Chuyita Orosco.miah\Date and Time Signed: 05/27/25 09:08 EDT Other Comment: Odalys morse Attachment - attachment storage system not supported [id number] Can be viewed in source system Missing Attachment - attachment storage system not supported [id number] Can be viewed in source system Missing Attachment - attachment storage system not supported [id number] Can be viewed in source system Missing Attachment - attachment storage system not supported [id number] Can be viewed in source system Missing Attachment - attachment storage system not supported [id number] Can be viewed in source system Celiac Disease Comprehensive on 05-18-2025 Antigliadin IgA 4 unit(s) Invalid Interpretation Code 0-19 [facility] Comment on above: Result Comment: Nega tive 0 - 19 Weak Positive 20 - 30 Moderate to Strong Positive >30 Performed By: #### 1 [id number] #### [facility] [address] [place] [address] Antigliadin IgG 2 unit(s) Invalid Interpretation Code 0-19 [facility] Comment on above: Result Comment: Nega tive 0 - 19 Weak Positive 20 - 30 Moderate to Strong Positive >30 Performed By: #### 1 [id number] #### [facility] [address] [place] [address] Endomysial Antibody IgA Negative Invalid Interpretation Code Negative [facility] Comment on above: Performed By: #### 1 [id number] #### [facility] [address] [place] [address] IgA Quant 131 mg/dL Invalid Interpretation Code 87-352 [facility] Comment on above: Result Comment: Perf ormed at: [facility] [address] [place] [address] [id number] PhD Beatriz Soriano Performed By: #### 1 [id number] #### [facility] [address] [place] [address] t-Transglutaminase IgA <2 Invalid Interpretation Code 0-3 [facility] Comment on above: Result Comment: Nega tive 0 - 3 Weak Positive 4 - 10 Positive >10 Tissue Transglutaminase (tTG) has been identified as the endomysial antigen. Studies have demonstr- ated that endomysial IgA antibodies have over 99% specificity for gluten sensitive enteropathy. Performed By: #### 1 [id number] #### [facility] [address] [place] [address] t-Transglutaminase IgG 8 unit/mL High 0-5 [facility] Comment on above: Result Comment: Nega tive 0 - 5 Weak Positive 6 - 9 Positive >9 Performed By: #### 1 [id number] #### [facility] [address] [place] [address] Ambulatory Visit Summaryon 0 05-15-2025 Ambulatory Visit Summary Ambulatory Visi t Summary KATE ROSAS :1975 Visit Date:05/15/2025 Ambulatory Visit Instructions Your Diagnosis Left sided abdominal pain Change in bowel habits Bloating Screen for colon cancer Your Care Team Attending Physician - Chuyita Sanches MD Primary Care Physician - RODRI LAI DO This Is Your Medications List hyoscyamine (Levsin 0.125 mg SL Tab) Contact prescribing physician if questions or concerns citalopram levothyroxine (levothyroxine 75 mcg (0.075 mg) Tab) Procedures Performed back surgery. Discharge Vitals Heart Rate (Peripheral) 63 Blood Pressure 108/73 Height 165.1 cm Height 65 in Weight 83.6 kg Weight 184.306 lb BMI 30.67 What to do next Scheduled Follow-Up Appointments Tuesday 8:30 AM EDT Where: [facility] Medications What How Much When Why Instructions New hyoscyamine (Levsin 0.125 mg SL Tab) 1 Tablets By Mouth 4 times a day as needed for for spasm Left sided abdominal pain Change in bowel habits Bloating Screen for colon cancer Pickup at [facility] #[id number] Unchanged citalopram Contact prescribing physician if questions or concerns Unchanged levothyroxine (levothyroxine 75 mcg (0.075 mg) Tab) 1 Tablets By Mouth Every day Contact prescribing physician if questions or concerns Pharmacy Information [facility] #[id number]: [address], [place] [id number] [phone] Allergies No Known Allergies Problems Ongoing - Any problem that you are currently receiving treatment for. Bloating Oral contraceptive use Screen for colon cancer Patient Survey You may receive a survey via text or e-mail asking about your office visit. Please share your experience with us by completing your survey. We appreciate your feedback and thank you for choosing us for your care. Patient Portal You may access all of your results and other medical record information on our secure patient portal. If you are not signed up for this yet, please contact [employer] at [phone] to get signed up today. Language Information Language assistance services are available as needed. Normal [facility] Gastroenterology Office/Clin ic Noteon 05-15-2025 Gastroenterology Office/Clinic Note Gastroenterology Office/Clinic Note Chief Complaint Left sided abdominal pain, bloating, gas, back pain and pressure when she has to have a BM and change in bowel habits. HPI Staff NEW, 49 year old female who presents today for a referral by Dr Lai for complaints of change in bowel habits and left sided abdominal discomfort/bloating. Denies Blood Thinners Denies GLP-1 Agonists Abdominal discomfort/bloating and gas When did you first have this pain: 4 months - worsening Quality (sharp, dull): varies Constant or comes or go: intermittent location and radiation: Left sided Relation to food: nuts, popcorn, beans Change in bowel habits- high fiber diet Labs 05/08/25 Calcium 9.2 Bilirubin Total 0.5 Aspartate Amino Transferase 14 Low Alanine Aminotransferase 21 Alkaline Phosphatase 85 Total Protein 7.3 Albumin Level 3.8 Globulin 3.5 Albumin Globulin Ratio 1.1 White Blood Count 9.6 Red Blood Count 4.38 Hemoglobin 14.1 Hematocrit 40.6 Mean Corpuscular Volume 92.7 Mean Corpuscular Hemoglobin 32.2 Mean Corpuscular HGB Conc 34.7 Red Cell Distribution Width 12.7 Platelet Count 248 Mean Platelet Volume 9.2 Low History of Present Illness I have reviewed HPI staff note, most recent labs and imaging, I agree with the above documentation with the following additions/exceptions : PT with bloating and gas for a while could have altered bowel habits bloated after eating anything - more with high fiber diet avoiding nuts/popcorn since it is hard to pass some pain in the left side- could better with BMs Review of Systems PHQ Score Initial Depression Screen Score: 0 SCORE All systems reviewed, negative except as mentioned above Physical Exam Vitals & Measurements HR: 63(Peripheral) BP: 108/73 HT: 65 in HT: 165.1 cm WT: 184.306 lb WT: 83.6 kg BMI: 30.67 General: alert, no acute distress HEENT: atraumatic normocephalic Cardiovascular: regular rate and rhythm, normal peripheral perfusion Respiratory: Lungs CTA, respirations non labored Extremities: no deformity, no trauma Abdomen: Benign, soft, nontender nondistended Assessment/Plan 1. Left sided abdominal pain (R10.9: Unspecified abdominal pain) Ordered: hyoscyamine, 0.125 mg = 1 tab(s), Oral, QID, PRN for spasm, # 40 tab(s), Refills(s) 0, Pharmacy: [facility] #[id number], 165.1, cm, 05/15/25 14:06:00 EDT, Height/Length Dosing, 83.6, kg, 05/15/25 14:06:00 EDT, Weight Dosing Celiac Disease Comprehensive Colonoscopy (Hospital Procedure) EGD Endoscopy (Hospital Procedure) IgA, Quant. 2. Change in bowel habits (R19.4: Change in bowel habit) Ordered: hyoscyamine, 0.125 mg = 1 tab(s), Oral, QID, PRN for spasm, # 40 tab(s), Refills(s) 0, Pharmacy: [facility] #[id number], 165.1, cm, 05/15/25 14:06:00 EDT, Height/Length Dosing, 83.6, kg, 05/15/25 14:06:00 EDT, Weight Dosing Celiac Disease Comprehensive Colonoscopy (Hospital Procedure) EGD Endoscopy (Hospital Procedure) IgA, Quant. 3. Bloating (R14.0: Abdominal distension (gaseous)) Ordered: hyoscyamine, 0.125 mg = 1 tab(s), Oral, QID, PRN for spasm, # 40 tab(s), Refills(s) 0, Pharmacy: [facility] #[id number], 165.1, cm, 05/15/25 14:06:00 EDT, Height/Length Dosing, 83.6, kg, 05/15/25 14:06:00 EDT, Weight Dosing Celiac Disease Comprehensive Colonoscopy (Hospital Procedure) EGD Endoscopy (Hospital Procedure) IgA, Quant. 4. Screen for colon cancer (Z12.11: Encounter for screening for malignant neoplasm of colon) Ordered: hyoscyamine, 0.125 mg = 1 tab(s), Oral, QID, PRN for spasm, # 40 tab(s), Refills(s) 0, Pharmacy: [facility] #[id number], 165.1, cm, 05/15/25 14:06:00 EDT, Height/Length Dosing, 83.6, kg, 05/15/25 14:06:00 EDT, Weight Dosing Celiac Disease Comprehensive Colonoscopy (Hospital Procedure) EGD Endoscopy (Hospital Procedure) IgA, Quant. Advised to use squatty potty and massage the colon Advised to eat prunes and kiwi fruit Advised to use miralax and titrate to have 1-2 BM daily Schedule upper endoscopy with small bowel biopsies Schedule colonoscopy with TI evaluation Check IgA levels and comprehensive celiac panel Prescribe Levsin for colon spasm Advised to use [employer] [id number] Follow-up No qualifying data available Problem List/Past Medical History Ongoing Bloating Oral contraceptive use Screen for colon cancer Historical No qualifying data Procedure/Surgical History back surgery. Medications citalopram levothyroxine 75 mcg (0.075 mg) Tab, 75 mcg= 1 tab(s), Oral, Daily Levsin 0.125 mg SL Tab, 0.125 mg= 1 tab(s), Oral, QID, PRN Allergies No Known Allergies Social History Alcohol Current, Beer, 1-2 times per month, 04/14/2020 Substance Abuse - Denies Substance Abuse, 04/11/2019 Tobacco Former smoker, quit more than 30 days ago Tobacco Use:. Never Smokeless Tobacco Use:. Cigarettes, 05/15/2025 Family History Diabetes mellitus type 1: Mother. Hypertension: Father and Sis (more content not included)... Normal [facility] Comment on above: Result Comment: Elec tronically Signed By: Myron LING, Chuyita Hoover\.br\Date and Time Signed: 05/15/25 14:24 EDT Basophils Auto (Bld) [#/Vol] Ordered By: Rodri Lai on 05-08-2025 Basophils (Bld) [#/Vol] 0.1 10 3/uL 0.0-0.1 [facility] Basophils/100 WBC Auto (Bld) Ordered By: Rodri Lai on 05-08-2025 Basophils/100 WBC (Bld) 0.5 % 0.2-2.0 F [facility] Cholesterol in LDL Calc [Mas s/Vol]Ordered By: Rodri Lai on 05-08-2025 Cholesterol in LDL [Mass/Vol] 132.0 mg/dL [facility] Comment on above: <100 mg/dl [id number] 0-129 mg/dl NEAR OR ABOVE [id number] mg/dl BORDERLINE [id number] mg/dl HIGH>190 mg/dl VERY HIGH Cholesterol in VLDL Calc [Ma ss/Vol]Ordered By: Rodri Lai on 05-08-2025 Cholesterol in VLDL [Mass/Vol] 10.6 mg/dL [facility] Eosinophils/100 WBC Auto (Bl d)Ordered By: Rodri Lai on 05-08-2025 Eosinophils/100 WBC (Bld) 2.7 % 0.9-7.0 [facility] Erythrocyte distribution wid th Auto (RBC) [Ratio]Ordered By: Rodri Lai on 05-08-2025 Erythrocyte distribution width (RBC) [Ratio] 12.7 % 11.0-15.0 [facility] Estimated glomerular filtrat ion rate (GFR) non- AmericanOrdered By: Rodri Lai on 05-08-2025 GFR/1.73 sq M.predicted among non-blacks MDRD (S/P/Bld) [Vol rate/Area] mL/min/{1.73_m2} >=60 mL/min/1.7 3m 2 [facility] Globulin Calc (S) [Mass/Vol] Ordered By: Rodri Lai on 05-08-2025 Globulin (S) [Mass/Vol] 3.5 g/dL F [facility] Hematocrit Auto (Bld) [Volum e fraction]Ordered By: Rodri Lai on 05-08-2025 Hematocrit (Bld) [Volume fraction] 40.6 % 36.0-48.0 [facility] Hemoglobin [Mass/volume] in BloodOrdered By: Rodri Lai on 05-08-2025 Hemoglobin (Bld) [Mass/Vol] 14.1 g/dL 12.0-16.0 [facility] Laboratory - Chemistry and C hemistry - challengeOrdered By: Rodri Lai on 05-08-2025 Albumin [Mass/Vol] 3.8 g/dL 3.4-5.0 [facility] ALP [Catalytic activity/Vol] 85 U/L 46-116 [facility] ALT [Catalytic activity/Vol] 21 U/L 14-59 [facility] AST [Catalytic activity/Vol] 14 U/L Low 15-37 [facility] Bilirubin [Mass/Vol] 0.5 mg/dL 0.2-1.0 [facility] Calcium [Mass/Vol] 9.2 mg/dL 8.5-10.1 [facility] Chloride [Moles/Vol] 101 mmol/L 98-107 [facility] Cholesterol [Mass/Vol] 212 mg/dL High <=200 [facility] Cholesterol in HDL [Mass/Vol] 70 mg/dL High 40-60 [facility] Comment on above: > or =60 mg/dl - LOW CARDIOVASCULAR RISK<40 mg/dl - HIGH CARDIOVASCULAR RISK CO2 [Moles/Vol] 29.4 mmol/L 21.0-32.0 [facility] Creatinine [Mass/Vol] 0.72 mg/dL 0.55-1.02 [facility] GFR/1.73 sq M.predicted MDRD (S/P/Bld) [Vol rate/Area] mL/min/{1.73_m2} >=60 mL/min/1.7 3m 2 [facility] Glucose [Mass/Vol] 86 mg/dL 74-106 [facility] Potassium [Moles/Vol] 4.0 mmol/L 3.5-5.1 [facility] Protein [Mass/Vol] 7.3 g/dL 6.4-8.2 [facility] Sodium [Moles/Vol] 140 mmol/L 136-145 [facility] Triglyceride [Mass/Vol] 53 mg/dL <=150 [facility] TSH Qn 0.844 m[IU]/L 0.358-3.74 0 [facility] Urea nitrogen [Mass/Vol] 11.0 mg/dL 7.0-18.0 [facility] Urea nitrogen/Creatinine [Mass ratio] 15.3 mg/mg [facility] Laboratory - Hematology and Cell countsOrdered By: Rodri Lai on 05-08-2025 Immature granulocytes/100 WBC (Bld) 0.4 % 0.0-0.5 [facility] Leukocytes [#/volume] correc cris for nucleated erythrocytes in Blood by Automated counOrdered By: Rodri Lai on 05-08-2025 WBC corrected for nucl RBC Auto (Bld) [#/Vol] 9.6 10 3/uL 4.0-11.0 [facility] Lymphocytes Auto (Bld) [#/Vo l]Ordered By: Rodri Lai on 05-08-2025 Lymphocytes (Bld) [#/Vol] 1.9 10 3/uL 1.2-3.8 [facility] Lymphocytes/100 WBC Auto (Bl d)Ordered By: Rodri Lai on 05-08-2025 Lymphocytes/100 WBC (Bld) 19.8 % Low 20.5-60.0 [facility] MCH Auto (RBC) [Entitic mass ]Ordered By: Rodri Lai on 05-08-2025 MCH (RBC) [Entitic mass] 32.2 pg 26.7-34.0 [facility] MCHC Auto (RBC) [Mass/Vol]Or dered By: Rodri Lai on 05-08-2025 MCHC (RBC) [Mass/Vol] 34.7 g/dL 29.9-35.2 [facility] MCV Auto (RBC) [Entitic vol] Ordered By: Rodri Lai on 05-08-2025 MCV (RBC) [Entitic vol] 92.7 fL 81.0-99.0 [facility] Monocytes Auto (Bld) [#/Vol] Ordered By: Rodri Lai on 05-08-2025 Monocytes (Bld) [#/Vol] 0.7 10 3/uL 0.3-0.8 [facility] Monocytes/100 WBC Auto (Bld) Ordered By: Rodri Lai on 05-08-2025 Monocytes/100 WBC (Bld) 7.3 % 1.7-12.0 [facility] Neutrophils Auto (Bld) [#/Vo l]Ordered By: Rodri Lai on 05-08-2025 Neutrophils (Bld) [#/Vol] 6.7 10 3/uL High 1.4-6.5 [facility] Neutrophils/100 WBC Auto (Bl d)Ordered By: Rodri Lai on 05-08-2025 Neutrophils/100 WBC (Bld) 69.3 % 43.0-75.0 [facility] No Panel InformationOrdered By: Rodri Lai on 05-08-2025 Eosinophils # (Auto) 0.3 10 3/uL 0.0-0.7 [facility] Immature Granulocyte # (Auto) 0.04 10 3/uL High 0.00-0.03 [facility] Miscellaneous Test COMMENT . [facility] Comment on above: Test Ordered: [id number] FerritinFerritin 45 ng/mL CB Reference Range: 15-150Performed at: - [facility] [address] [id number] Director: Bo Henderson PhD, Phone: [phone] Platelet mean volume Auto (B ld) [Entitic vol]Ordered By: Rodri Lai on 05-08-2025 Platelet mean volume (Bld) [Entitic vol] 9.2 fL Low 9.5-13.5 [facility] Platelets Auto (Bld) [#/Vol] Ordered By: Rodri Lai on 05-08-2025 Platelets (Bld) [#/Vol] 248 10 3/uL 150-450 [facility] RBC Auto (Bld) [#/Vol]Ordere d By: Rodri Lai on 05-08-2025 RBC (Bld) [#/Vol] 4.38 10 6/uL 4.20-5.40 [facility] Serum or plasma albumin/glob ulin mass ratioOrdered By: Rodri Lai on 05-08-2025 Albumin/Globulin [Mass ratio] 1.1 {ratio} [facility] Serum or plasma anion gap de terminationOrdered By: Rodri Lai on 05-08-2025 Anion gap [Moles/Vol] 13.6 mmol/L [facility] Serum or plasma total choles terol/high density lipoprotein (HDL) cholesterol mass ratOrdered By: Rodri Lai on 05-08-2025 Cholesterol.total/Cholest jun in HDL [Mass ratio] 3.0 {ratio} [facility] Comment on above: 3.3 - 4.4 LOW RISK4. 4 - 7.1 AVERAGE RISK7.1 - 11.0 MODERATE RISK>11.0 HIGH RISK PAP ACOG PANEL 2: 30 to 65on 06-28-2022 . . Normal [facility] Comment on above: Result Comment: Perf ormed at: WB Performed By: #### [id number] #### [id number] [place] [address]DrKhoi Arora Age Gdln ACOG Testing 30-65 Normal [facility] Comment on above: Performed By: #### 4 [id number] #### [id number] [place] [address]DrKhoi Arora DIAGNOSIS: Comment Normal [facility] Comment on above: Result Comment: NEGA TIVE FOR INTRAEPITHELIAL LESION OR MALIGNANCY. SHIFT IN CHRIS SUGGESTIVE OF BACTERIAL VAGINOSIS. Performed at: WB Performed By: #### [id number] #### [id number] [place], [place] [address]DrKhoi Arora HPV Aptima Negative Normal Negative [facility] Comment on above: Result Comment: This nucleic acid amplification test detects fourteen high-risk HPV types (16,18,31,33,35,39,45,51,52,56,58,59,66,68) without differentiation. Performed at: =G Performed By: #### 4 [id number] #### [id number] [place] [address]DrKhoi Arora Methodology: Comment Normal [facility] Comment on above: Result Comment: This liquid based ThinPrep(R) pap test was screened with the use of an image guided system. Performed at: WB Performed By: #### 4 [id number] #### [id number] [place], [place] [address]DrKhoi Arora Note: Comment Normal [facility] Comment on above: Result Comment: The Pap smear is a screening test designed to aid in the detection of premalignant and malignant conditions of the uterine cervix. It is not a diagnostic procedure and should not be used as the sole means of detecting cervical cancer. Both false-positive and false-negative reports do occur. . Performed at: WB Performed By: #### 4 [id number] #### [id number] [place] [id number]. Elizabeth Arora Performed by: Comment Normal [facility] Comment on above: Result Comment: Rolanda Maurice, Home Service Director (ASCP) Performed at: WB Performed By: #### 4 [id number] #### [id number] [place] [id number]. Elizabeth Arora Specimen adequacy: Comment Normal [facility] Comment on above: Result Comment: Sati sfactory for evaluation. Endocervical and/or squamous metaplastic cells (endocervical component) are present. Performed at: WB Performed By: #### 4 [id number] #### [id number] [place] [id number]. Elizabeth Arora MG MAMM SCREEN 3D CHESTER CADon 06-17-2022 MG MAMM SCREEN 3D CHESTER CAD Patient: KATE EPPERSON Exam Date: 06/17/2022 : 1975 Gender:F Ordering : DR RODRI LAI D.O. Admission #: [id number] Family : Order #: [id number] CLICK HERE TO VIEW EXAM RADIOLOGY REPORT PROCEDURE: MAMMOGRAM SCREENING 3D BILATERAL CAD COMPARISON: MG MAMM SCREEN CHESTER W CAD, 05/07/2020. MG MAMM SCREEN 3D CHESTER CAD, 06/16/2021. INDICATIONS: Screening mammography Calculator Name NCI Breast Cancer Risk Assessment Tool 5 Year Breast Cancer Risk 1.00% Lifetime Breast Cancer Risk 10.20% Personal Breast Cancer No Personal Ovarian Cancer No Treatments None Family Cancers Aunt-maternal with uterine cancer at age 62. LOCATION: The BREAST COMPOSITION: Heterogeneously dense,which may obscure small masses. FINDINGS: DIAGNOSTIC CATEGORY 1--NEGATIVE. NO CHANGE FROM COMPARISON ASSESSMENT. Scattered benign-appearing lymph nodes are present. RIGHT BREAST: No significant suspicious finding. LEFT BREAST: No significant suspicious finding. RECOMMENDATIONS: ROUTINE MAMMOGRAM AND CLINICAL EVALUATION IN 12 MONTHS. PLEASE NOTE: A NORMAL MAMMOGRAM DOES NOT EXCLUDE THE POSSIBILITY OF BREAST CANCER. A CLINICALLY SUSPICIOUS PALPABLE LUMP SHOULD BE BIOPSIED. Dictated by: Luis Hood MD on 06/17/2022 at 14:55 Approved by: Luis Hood MD on 06/17/2022 at 14:57 Normal [facility] CBC AUTO DIFFon 04-28-2022 BASO # 0.1 103/ul Normal 0.0-0.1 [facility] Comment on above: Performed By: #### C BC #### Laboratory [address] [place] [address] Dr. Elizabeth Arora Basophils/100 WBC (Bld) 0.8 % Normal 0.2-2.0 [facility] Comment on above: Performed By: #### C BC #### Laboratory [address] [place] [address] Dr. Elizabeth Arora EO # 0.2 103/ul Normal 0.0-0.7 [facility] Comment on above: Performed By: #### C BC #### Laboratory [address] [place] [address] Dr. Elizabeth Arora Eosinophils/100 WBC (Bld) 2.0 % Normal 0.9-7.0 [facility] Comment on above: Performed By: #### C BC #### Laboratory [address] [place] [address] Dr. Elizabeth Arora Erythrocyte distribution width (RBC) [Ratio] 13.3 % Normal 11.0-15.0 [facility] Comment on above: Performed By: #### C BC #### Laboratory [address] [place] [address] Dr. Elizabeth Arora Hematocrit (Bld) [Volume fraction] 40.8 % Normal 36.0-48.0 [facility] Comment on above: Performed By: #### C BC #### Laboratory [address] [place] [address] Dr. Elizabeth Arora Hemoglobin (Bld) [Mass/Vol] 13.3 g/dL Normal 12.0-16.0 [facility] Comment on above: Performed By: #### C BC #### Laboratory [address] [place] [address] Dr. Elizabeth Arora IG # 0.07 10e3/ul Critically high 0.00-0.03 [facility] Comment on above: Performed By: #### C BC #### Laboratory [address] [place] [address] Dr. Elizabeth Arora IG % 0.8 % Critically high 0.0-0.5 [facility] Comment on above: Performed By: #### C BC #### Laboratory [address] [place] [address] Dr. Elizabeth Arora LYMPH # 1.3 103/ul Normal 1.2-3.8 [facility] Comment on above: Performed By: #### C BC #### Laboratory [address] [place] [address] Dr. Elizabeth Arora Lymphocytes/100 WBC (Bld) 15.2 % Critically low 20.5-6 0.0 [facility] Comment on above: Performed By: #### C BC #### Laboratory [address] [place] [address] Dr. Elizabeth Arora MANUAL DIFF REQ NO Normal [facility] Comment on above: Performed By: #### C BC #### Laboratory [address] [place] [address] Dr. Elizabeth Arora MCH (RBC) [Entitic mass] 30.9 pg Normal 26.7-34.0 [facility] Comment on above: Performed By: #### C BC #### Laboratory [address] [place] [address] Dr. Elizabeth Arora MCHC (RBC) [Mass/Vol] 32.6 g/dL Normal 29.9-35.2 [facility] Comment on above: Performed By: #### C BC #### Laboratory [address] [place] [address] Dr. Elizabeth Arora MCV (RBC) [Entitic vol] 94.9 fL Normal 81.0-99.0 [facility] Comment on above: Performed By: #### C BC #### Laboratory [address] [place] [address] Dr. Elizabeth Arora MONO # 0.6 103/ul Normal 0.3-0.8 [facility] Comment on above: Performed By: #### C BC #### Laboratory [address] [place] [address] Dr. Elizabeth Arora Monocytes/100 WBC (Bld) 6.8 % Normal 1.7-12.0 [facility] Comment on above: Performed By: #### C BC #### Laboratory [address] [place] [address] Dr. Elizabeth Arora NEUT # 6.3 103/ul Normal 1.4-6.5 [facility] Comment on above: Performed By: #### C BC #### Laboratory [address] [place] [address] Dr. Elizabeth Arora Neutrophils/100 WBC (Bld) 74.4 % Normal 43.0-75.0 [facility] Comment on above: Performed By: #### C BC #### Laboratory [address] [place] [address] Dr. Elizabeth Arora Platelet mean volume (Bld) [Entitic vol] 9.0 fL Critically low 9.5-13.5 [facility] Comment on above: Performed By: #### C BC #### Laboratory [address] [place] [address] Dr. Elizabeth Arora PLT 269 103/ul Normal 150-450 The Comment on above: Performed By: #### C BC #### Laboratory [address] [place] [address] Dr. Elizabeth Arora RBC 4.30 106/ul Normal 4.20-5.40 [facility] Comment on above: Performed By: #### C BC #### Laboratory [address] [place] [address] Dr. Elizabeth Arora WBC 8.5 103/ul Normal 4.0-11.0 [facility] Comment on above: Performed By: #### C BC #### Laboratory [address] [place] [address] Dr. Elizabeth Arora GLYCOHEMOGLOBIN A1Con 2021 ADA RECOMMENDATION SEE BELOW Normal The Comment on above: Result Comment: ADA RECOMMENDED LIMIT 4.0 - 6.0 ADA THERAPEUTIC TARGET < 7.0 ACTION SUGGESTED > 7.0 Performed By: #### A 1C #### Laboratory [address] [address] [address] Elizabeth Arora Glucose [Mass/Vol] 105 mg/dL Normal [facility] Comment on above: Performed By: #### A 1C #### Laboratory [address] [place], [place] [address] Dr. Elizabeth Arora HbA1c (Bld) [Mass fraction] 5.3 % Normal 4.5-6.2 [facility] Comment on above: Performed By: #### A 1C #### Laboratory [address] [address] [address] Elizabeth Arora LIPID PROFILEon 04-28-2022 CHOL-HDL RATIO NORM SEE BELOW Normal [facility] Comment on above: Result Comment: 3.3 - 4.4 LOW RISK 4.4 - 7.1 AVERAGE RISK 7.1 - 11.0 MODERATE RISK >11.0 HIGH RISK Performed By: #### L IPID, CMP, TSH #### [id number] [place] [address]Dr. Elizabeth Arora Cholesterol [Mass/Vol] 252 mg/dL Critically high <=200 The Comment on above: Performed By: #### L IPID, CMP, TSH #### [id number] [place] [address]Dr. Elizabeth Arora Cholesterol in HDL [Mass/Vol] 74 mg/dL Critically high 40-60 [facility] Comment on above: Performed By: #### L IPID, CMP, TSH #### [id number] [place] [address]Dr. Elizabeth Arora Cholesterol in LDL [Mass/Vol] 154.8 mg/dL Normal The Comment on above: Performed By: #### L IPID, CMP, TSH #### [id number] [place] [address]Dr. Elizabeth Arora Cholesterol.total/Cholest jun in HDL [Mass ratio] 3.4 {ratio} Normal The Comment on above: Performed By: #### L IPID, CMP, TSH #### [id number] [place] [address]Dr. Elizabeth Arora HDL NORMAL > or = 60 mg/dl - LO W CARDIOVASCULAR RISK <40 mg/dl - HIGH CARDIOVASCULAR RISK Normal [facility] Comment on above: Performed By: #### L IPID, CMP, TSH #### [id number] [place] [address]Dr. Elizabeth Arora LDL CALC NORMAL SEE BELOW Normal [facility] Comment on above: Result Comment: <100 mg/dl OPTIMAL 100 - 129 mg/dl NEAR OR ABOVE OPTIMAL 130 - 159 mg/dl BORDERLINE HIGH 160 - 189 mg/dl HIGH >190 mg/dl VERY HIGH Performed By: #### L IPID, CMP, TSH #### [id number] [place] [address]Dr. Elizabeth Arora Triglyceride [Mass/Vol] 116 mg/dL Normal <=150 [facility] Comment on above: Performed By: #### L IPID, CMP, TSH #### [id number] [place] [address]Dr. Elizabeth Arora VLDL CALC 23.2 mg/dL Normal The Comment on above: Performed By: #### L IPID, CMP, TSH #### [id number] [place], [place] [address]Dr. Elizabeth Arora PROF 14(COMP METB)on 022 Albumin [Mass/Vol] 3.6 g/dL Normal 3.4-5.0 [facility] Comment on above: Performed By: #### L IPID, CMP, TSH #### [id number] [place] [address]Dr. Elizabeth Arora Albumin/Globulin [Mass ratio] 1.0 {ratio} Normal [facility] Comment on above: Performed By: #### L IPID, CMP, TSH #### [id number] [place] [address]Dr. Elizabeth Arora ALP [Catalytic activity/Vol] 74 U/L Normal 46-116 [facility] Comment on above: Performed By: #### L IPID, CMP, TSH #### [id number] [place] [address]Dr. Elizabeth Arora ALT [Catalytic activity/Vol] 25 U/L Normal 14-59 The Comment on above: Performed By: #### L IPID, CMP, TSH #### [id number] [place] [address]Dr. Elizabeth Arora Anion gap [Moles/Vol] 9.8 mmol/L Normal The Comment on above: Performed By: #### L IPID, CMP, TSH #### [id number] [place] [address]Dr. Elizabeth Arora AST [Catalytic activity/Vol] 18 U/L Normal 15-37 The Comment on above: Performed By: #### L IPID, CMP, TSH #### [id number] [place] [address]Dr. Elizabeth Arora Bilirubin [Mass/Vol] 0.5 mg/dL Normal 0.2-1.0 The Comment on above: Performed By: #### L IPID, CMP, TSH #### [id number] [place] [address]Dr. Elizabeth Arora Calcium [Mass/Vol] 8.7 mg/dL Normal 8.5-10.1 The Comment on above: Performed By: #### L IPID, CMP, TSH #### [id number] [place] [address]Dr. Elizabeth Arora Chloride [Moles/Vol] 102 mmol/L Normal 98-107 The Comment on above: Performed By: #### L IPID, CMP, TSH #### [id number] [place] [address]Dr. Elizabeth Arora CO2 [Moles/Vol] 29.4 mmol/L Normal 21.0-32.0 The Comment on above: Performed By: #### L IPID, CMP, TSH #### [id number] [place] [address]Dr. Elizabeth Arora Creatinine [Mass/Vol] 0.69 mg/dL Normal 0.55-1.02 [facility] Comment on above: Performed By: #### L IPID, CMP, TSH #### [id number] [place] [address]Dr. Elizabeth Arora EGFR-AF J[place]ICAN >60 Normal >=60 [facility] Comment on above: Performed By: #### L IPID, CMP, TSH #### [id number] [place] [address]Dr. Elizabeth Arora EGFR-NON AF [place] >60 Normal >=60 [facility] Comment on above: Performed By: #### L IPID, CMP, TSH #### [address] [place] [address]Dr. Elizabeth Ulysses Globulin (S) [Mass/Vol] 3.7 g/dL Normal [facility] Comment on above: Performed By: #### L IPID, CMP, TSH #### [id number] [place] [address]Dr. Elizabeth Arora Glucose [Mass/Vol] 90 mg/dL Normal 74-106 [facility] Comment on above: Performed By: #### L IPID, CMP, TSH #### [id number] [place], [place] [address]Dr. Elizabeth Arora Potassium [Moles/Vol] 4.2 mmol/L Normal 3.5-5.1 [facility] Comment on above: Performed By: #### L IPID, CMP, TSH #### [id number] [place] [address]Dr. Elizabeth Ulysses Protein [Mass/Vol] 7.3 g/dL Normal 6.4-8.2 [facility] Comment on above: Performed By: #### L IPID, CMP, TSH #### [id number] [place], [place] [address]Dr. Elizabeth Arora Sodium [Moles/Vol] 137 mmol/L Normal 136-145 [facility] Comment on above: Performed By: #### L IPID, CMP, TSH #### [address] [place] [address]Dr. Elizabeth Arora Urea nitrogen [Mass/Vol] 13.0 mg/dL Normal 7.0-18.0 [facility] Comment on above: Performed By: #### L ASHA ALBRECHT, TSH #### [id number] [place], [place] [address]Le. Elizabeth Arora Urea nitrogen/Creatinine [Mass ratio] 18.8 mg/mg Normal [facility] Comment on above: Performed By: #### L ASHA ALBRECHT, TSH #### [address] [place], [place] [address]Vl. Elizabeth Arora TSHon 04-28-2022 TSH 1.527 uIU/mL Normal 0.358-3.74 0 [facility] Comment on above: Performed By: #### L ASHA ALBRECHT, TSH #### [id number] [place], [place] [address]As. Elizabeth Arora VC INJ SCL SUZI SPECIAL EFFECTS SPECIALIST VEINSon 0 02-25-2022 VC INJ SCL SUZI SPECIAL EFFECTS SPECIALIST VEINS Patient: KATE SANCHEZ. Exam Date: 02/25/2022 : 1975 Gender:F Ordering : DR LUIS HOOD M.D. Admission #: [id number] Family : Order #: [id number] CLICK HERE TO VIEW EXAM RADIOLOGY REPORT PROCEDURE: VEIN CENTER INJECTION SCLEROSING SOLUTION MULTIPLE VEINS SAME COMPARISON: VC INJ SCL SUZI SPECIAL EFFECTS SPECIALIST VEINS, 02/24/2022. VC INJ SCL SUZI SPECIAL EFFECTS SPECIALIST VEINS, 02/23/2022. INDICATIONS: Pain co-occurrent and due to varicose veins of bilateral legs I83.813 PROCEDURE NOTE: The risks and benefits of the procedure were explained at length to the patient and informed written consent was obtained. Arden Thurston assisted. The procedure was performed under sterile technique. The patient's leg was wrapped with Coban and postprocedural verbal and written instructions provided. SCLEROSANT: 4 cc, 0.5% polidocanol VEIN(S) INJECTED: 16 veins in the right leg VISUALIZATION: Ultrasound was not used to visualize the sclerosant ANESTHESIA Supercooled air COMPLICATIONS: None CONCLUSION: 1. Technically successful sclerotherapy as described Dictated by: Luis Hood MD on 02/25/2022 at 14:44 Approved by: Luis Hood MD on 02/25/2022 at 14:45 Normal The VC INJ SCL SUZI SPECIAL EFFECTS SPECIALIST VEINSon 0 02-24-2022 VC INJ SCL SUZI SPECIAL EFFECTS SPECIALIST VEINS Patient: KATE SANCHEZ. Exam Date: 02/24/2022 : 1975 Gender:F Ordering : DR LUIS HOOD M.D. Admission #: [id number] Family : Order #: [id number] CLICK HERE TO VIEW EXAM RADIOLOGY REPORT PROCEDURE: VEIN CENTER INJECTION SCLEROSING SOLUTION MULTIPLE VEINS SAME COMPARISON: VC INJ SCL SUZI SPECIAL EFFECTS SPECIALIST VEINS, 02/23/2022. INDICATIONS: Pain co-occurrent and due to varicose veins of bilateral legs I83.813 PROCEDURE NOTE: The risks and benefits of the procedure were explained at length to the patient and informed written consent was obtained. Arden Thurston assisted. The procedure was performed under sterile technique. The patient's leg was wrapped with Coban and postprocedural verbal and written instructions provided. SCLEROSANT: 4 cc, 0.5% polidocanol VEIN(S) INJECTED: 21 veins in the left leg VISUALIZATION: Ultrasound was not used to visualize the sclerosant ANESTHESIA Supercooled air COMPLICATIONS: None CONCLUSION: 1. Technically successful sclerotherapy as described Dictated by: Luis Hood MD on 02/24/2022 at 13:28 Approved by: Luis Hood MD on 02/24/2022 at 13:28 Normal [facility] VC INJ SCL SUZI SPECIAL EFFECTS SPECIALIST VEINSon 0 02-23-2022 VC INJ SCL SUZI SPECIAL EFFECTS SPECIALIST VEINS Patient: KATE SANCHEZ. Exam Date: 02/23/2022 : 1975 Gender:F Ordering : DR LUIS HOOD M.D. Admission #: [id number] Family : Order #: [id number] CLICK HERE TO VIEW EXAM RADIOLOGY REPORT PROCEDURE: VEIN CENTER INJECTION SCLEROSING SOLUTION MULTIPLE VEINS SAME COMPARISON: None. INDICATIONS: Pain co-occurrent and due to varicose veins of bilateral legs I83.813 PROCEDURE NOTE: The risks and benefits of the procedure were explained at length to the patient and informed written consent was obtained. The procedure was performed under sterile technique. Arden Thurston Assisted The patient's leg was wrapped with Coban and postprocedural verbal and written instructions provided. SCLEROSANT: 4 cc, 0.5% polidocanol VEIN(S) INJECTED: 16 veins in the right leg VISUALIZATION: Ultrasound was not used to visualize the sclerosant ANESTHESIA Supercooled air COMPLICATIONS: None CONCLUSION: 1. Technically successful sclerotherapy as described Dictated by: Luis Hood MD on 02/23/2022 at 13:27 Approved by: Luis Hood MD on 02/23/2022 at 13:30 Normal [facility] VC CONSULT FOLLOWUPon 2021 VC CONSULT FOLLOWUP Patient: WANDA ROSAS Exam Date: 02/17/2022 : 1975 Gender:F Ordering : DR LUIS HOOD M.D. Admission #: [id number] Family : Order #: [id number] CLICK HERE TO VIEW EXAM RADIOLOGY REPORT PROCEDURE: VEIN CENTER CONSULTATION FOLLOWUP VEIN CENTER - OFFICE VISIT FOLLOW UP COMPARISON: VC CONSULT FOLLOWUP, 12/28/2021. PROGRESS NOTES: The patient reports no significant pain or discomfort in following intravenous laser ablation of the left great saphenous vein. The patient did not require oral analgesics. The patient has worn her compression stocking. The patient has followed our recommendations to walk 20-30 minutes once or twice per day since the procedure. The patient reports improvement in her initial presenting symptoms, she should continue to fill in improvement over the next few months. Physical exam demonstrates no significant bruising. No hemosiderin staining. Thrombosed left great saphenous vein can be palpated. No areas of erythema or warmth to suggest cellulitis or thrombophlebitis. No active ulceration. Review of the ultrasound performed the same day demonstrates occlusive thrombus extending throughout the treated left great saphenous vein with heat induced thrombus 9.6 mm from the saphenofemoral junction. Micro foam chemical ablation was recommended, however the patient's insurance does not cover the service and she did not want to self pay. The patient is eligible for injection sclerotherapy and will schedule in the future. IMPRESSION: 1. Successful ablation of the left great saphenous vein 2. 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 The nurse was present throughout the physical exam and consultation Dictated by: Luis Hood MD on 02/17/2022 at 13:00 Approved by: Luis Hood MD on 02/17/2022 at 13:02 Normal The VC EXT VENOUS LT LIMITEDon 0 02-17-2022 VC EXT VENOUS LT LIMITED Patient: KATE SANCHEZ. Exam Date: 02/17/2022 : 1975 Gender:F Ordering : DR LUIS HOOD M.D. Admission #: [id number] Family : Order #: [id number] CLICK HERE TO VIEW EXAM RADIOLOGY REPORT PROCEDURE: VEIN CENTER EXTREMITY VENOUS LEFT LIMITED COMPARISON: None. INDICATIONS: Phlebitis and thrombophlebitis of superficial veins of left lower extremity I80.02 TECHNIQUE: Lower extremity hughes scale and Duplex Doppler evaluation of the deep venous system from the inguinal ligament through the calf veins. FINDINGS: REGION: Left lower extremity. THROMBI: Negative for DVT. Heat induced thrombus in the left GSV 9.6 mm from SFJ and extends to the medial knee distal to insertion. COMPRESSIBILITY: Noncompressibility corresponding to thrombus FLOW: Absent flow corresponding to thrombus OTHER: Patent AASV remains. *Exam performed in accordance with [facility] practice guidelines- Peripheral venous ultrasound, January 10, 2010. CONCLUSION: Post ablation occlusion of the left great saphenous vein with heat induced thrombus 9.6 mm from the saphenofemoral junction Dictated by: Luis Hood MD on 02/17/2022 at 12:53 Approved by: Luis Hood MD on 02/17/2022 at 12:55 Normal The VC ENDOVENOUS ABL 1ST V LTon 02-10-2022 VC ENDOVENOUS ABL 1ST V LT Patient: KATE ROSAS. Exam Date: 02/10/2022 : 1975 Gender:F Ordering : DR LUIS HOOD M.D. Admission #: [id number] Family : Order #: [id number] CLICK HERE TO VIEW EXAM RADIOLOGY REPORT PROCEDURE: VEIN CENTER ENDOVENOUS ABLATION FIRST VEIN LEFT GREAT SAPHENOUS VEIN COMPARISON: VC VENOUS REFLUX CHESTER LMT, 12/09/2021. INDICATIONS: Pain co-occurrent and due to varicose veins of bilateral legs I83.813 OPERATIVE REPORT: The risks and benefits of the procedure had been previously discussed, and were rediscussed at length. Informed written consent was obtained by and Arden lopez. Time out procedure was performed. The left lower extremity was prepared and draped in the usual sterile fashion to allow knee flexion in the sterile field. Duplex ultrasound probe was draped in a sterile cover, sterile transmission gel was used. Venous mapping was performed with the areas of dilation and large tributaries marked. The total length was 28 cm from the entry at the knee to 3 cm below the saphenofemoral junction. The diameter of the greater saphenous vein ranged from 4-9 mm. A 30 gauge needle and 1% buffered lidocaine was used to anesthetize the entry site. A 4 mm incision was made with a scalpel and the saphenous vein was entered percutaneously under direct ultrasound guidance with a micropuncture set, a single stick was successful in gaining access. A micro-guide wire was inserted and the needle removed. A micro-set including a dilator was inserted over the microwire and the needle and dilator were removed. A 0.018 guide wire was inserted through the micro-set and threaded through the saphenous vein to the saphenofemoral junction. The dilator was removed and an introducer sheath was inserted over the wire until the end of the sheath entered the saphenofemoral junction. The dilator and wire were removed and the 600 micron fiber was introduced and placed and positioned so that it extended beyond the sheath and was 3 cm peripheral to the saphenofemoral femoral junction. Final position of the fiber was determined by ultrasound guidance and duplex imaging. Tumescent anesthetic was delivered by ultrasound guidance. 175 cc of fluid was delivered along the entire course of the saphenous vein. The solution consisted of 500 cc of normal saline with 20mL of 1% lidocaine and 10 mL of sodium bicarbonate. A final positioning check was made. The energy source was turned on by means of the foot pedal and the fiber and sheath were withdrawn. The total number of Joules delivered was 1311. The laser was active for 164 seconds under continuous pulse, average laser use of 8 J. Laser start time 8:50 a.m. February 10, 2022. Laser stop time < 8:53 a.m. February 10, 2022. A duplex ultrasound revealed compressibility and flow at the saphenofemoral junction immediately after the procedure. Hemostasis at the access site was achieved. The skin incision of the saphenous vein was closed with a 4 x 4. A compression stocking was applied. Postop instructions were given. A follow up appointment was recommended and scheduled. The patient tolerated the procedure well and was discharged in good condition. CONCLUSION: 1. Technically successful endovenous laser ablation of the left great saphenous vein. Dictated by: Luis Hood MD on 02/10/2022 at 08:54 Approved by: Luis Hood MD on 02/10/2022 at 08:55 Normal [facility] VC CONSULT FOLLOWUPon 2021 VC CONSULT FOLLOWUP Patient: WANDA ROSAS Exam Date: 12/28/2021 : 1975 Gender:F Ordering : DR LUIS HOOD M.D. Admission #: [id number] Family : Order #: [id number] CLICK HERE TO VIEW EXAM RADIOLOGY REPORT PROCEDURE: VEIN CENTER CONSULTATION FOLLOWUP VEIN CENTER - OFFICE VISIT FOLLOW UP COMPARISON: None. PROGRESS NOTES: The patient reports mild tenderness of the medial thigh following intravenous laser ablation of the right great saphenous vein. The patient did not require oral analgesics. The patient has worn her compression stocking. The patient has followed our recommendations to walk 20-30 minutes once or twice per day since the procedure. Physical exam demonstrates 3 areas of bruising likely related to tumescence injection the largest measuring 8 cm in diameter right mid thigh. No areas of erythema or warmth to suggest cellulitis or thrombophlebitis. No active ulceration. Review of the ultrasound performed the same day demonstrates occlusive thrombus extending throughout the treated right great saphenous vein with heat induced thrombus 1.1 cm from the saphenofemoral junction. No deep vein thrombus. The patient expressed a desire to proceed with treatment of incompetent left anterior accessory saphenous vein once pre-surgical occasion has been performed. IMPRESSION: 1. Successful ablation of the right great saphenous vein 2. 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 The nurse was present throughout the physical exam and consultation Dictated by: Luis Hood MD on 12/28/2021 at 09:22 Approved by: Luis Hood MD on 12/28/2021 at 09:24 Normal [facility] VC EXT VENOUS RT LIMITEDon 0 12-28-2021 VC EXT VENOUS RT LIMITED Patient: KATE SANCHEZ. Exam Date: 12/28/2021 : 1975 Gender:F Ordering : DR LUIS HOOD M.D. Admission #: [id number] Family : Order #: [id number] CLICK HERE TO VIEW EXAM RADIOLOGY REPORT PROCEDURE: VEIN CENTER EXTREMITY VENOUS RIGHT LIMITED COMPARISON: None. INDICATIONS: Phlebitis and thrombophlebitis of superficial veins of right lower extremity I80.01 TECHNIQUE: Lower extremity hughes scale and Duplex Doppler evaluation of the deep venous system from the inguinal ligament through the calf veins. FINDINGS: REGION: Right lower extremity. THROMBI: Negative for DVT. Heat induced thrombus in the right GSV 1.1 cm from the SFJ and extends to the proximal calf at insertion point. Multiple small varicose veins arising from were also thrombosed. COMPRESSIBILITY: Noncompressibility corresponding to thrombus FLOW: Absent flow corresponding to thrombus *Exam performed in accordance with [facility] practice guidelines- Peripheral venous ultrasound, January 10, 2010. CONCLUSION: Post ablation occlusion of the right great saphenous vein with heat induced thrombus 1.1 cm from the saphenofemoral junction Dictated by: Luis Hood MD on 12/28/2021 at 09:07 Approved by: Luis Hood MD on 12/28/2021 at 09:08 Normal [facility] VC ENDOVENOUS ABL 1ST V RTon 12-23-2021 VC ENDOVENOUS ABL 1ST V RT Patient: KATE ROSAS Exam Date: 12/23/2021 : 1975 Gender:F Ordering : DR LUIS HOOD M.D. Admission #: [id number] Family : Order #: [id number] CLICK HERE TO VIEW EXAM RADIOLOGY REPORT PROCEDURE: VEIN CENTER ENDOVENOUS ABLATION FIRST VEIN RIGHT GREAT SAPHENOUS VEIN COMPARISON: VC COMP CONSULTATION, 12/09/2021. VC VENOUS REFLUX CHESTER LMT, 12/09/2021. INDICATIONS: Pain co-occurrent and due to varicose veins of bilateral legs I83.813 OPERATIVE REPORT: The risks and benefits of the procedure had been previously discussed, and were rediscussed at length. Informed written consent was obtained by and Arden lopez. Time out procedure was performed. The right lower extremity was prepared and draped in the usual sterile fashion to allow knee flexion in the sterile field. Duplex ultrasound probe was draped in a sterile cover, sterile transmission gel was used. Venous mapping was performed with the areas of dilation and large tributaries marked. The total length was 38 cm from the entry proximal calf to 3 cm below the saphenofemoral junction. The diameter of the greater saphenous vein ranged from 4-9 mm. A 30 gauge needle and 1% buffered lidocaine was used to anesthetize the entry site. A 4 mm incision was made with a scalpel and the saphenous vein was entered percutaneously under direct ultrasound guidance with a micropuncture set, a single stick was successful in gaining access. A micro-guide wire was inserted and the needle removed. A micro-set including a dilator was inserted over the microwire and the needle and dilator were removed. A 0.018 guide wire was inserted through the micro-set and threaded through the saphenous vein to the saphenofemoral junction. The dilator was removed and an introducer sheath was inserted over the wire until the end of the sheath entered the saphenofemoral junction. The dilator and wire were removed and the 600 micron fiber was introduced and placed and positioned so that it extended beyond the sheath and was 3 cm peripheral to the saphenofemoral femoral junction. Final position of the fiber was determined by ultrasound guidance and duplex imaging. Tumescent anesthetic was delivered by ultrasound guidance. 250 cc of fluid was delivered along the entire course of the saphenous vein. The solution consisted of 500 cc of normal saline with 20mL of 1% lidocaine and 10 mL of sodium bicarbonate. A final positioning check was made. The energy source was turned on by means of the foot pedal and the fiber and sheath were withdrawn. The total number of Joules delivered was 1796. The laser was active for 225 seconds under continuous pulse, average laser use of 8 J. Laser start time 12:02 p.m. December 23, 2021. Laser stop time 12:06 p.m. December 23, 2021. A duplex ultrasound revealed compressibility and flow at the saphenofemoral junction immediately after the procedure. Hemostasis at the access site was achieved. The skin incision of the saphenous vein was closed with a 4 x 4. A compression stocking was applied. Postop instructions were given. A follow up appointment was recommended and scheduled. The patient tolerated the procedure well and was discharged in good condition. CONCLUSION: 1. Technically successful endovenous laser ablation of the right great saphenous vein. Dictated by: Luis Hood MD on 12/23/2021 at 12:07 Approved by: Luis Hood MD on 12/23/2021 at 12:09 Normal [facility] VC COMP CONSULTATIONon 12-09 VC COMP CONSULTATION Patient: Yara ROSAS Exam Date: 12/09/2021 : 1975 Gender:F Ordering : DR RODRI LAI D.O. Admission #: [id number] Family : Order #: [id number] CLICK HERE TO VIEW EXAM RADIOLOGY REPORT PROCEDURE: VC VEIN CENTER CONSULTATION VEIN CENTER - OFFICE VISIT INITIAL COMPARISON: None. PROGRESS NOTES: [age] year old female who presents with a 5 year history of bulging, dilated veins, discolored veins, leg pain, swelling, muscle cramping. The patient's left leg symptoms are worse than the right. There has been a progression of symptoms. This increases with prolonged standing. The patient describes an improvement with rest and elevation. The patient denies any signs and symptoms to suggest arterial ischemia. The patient describes a family history diabetes, hypertension, hypercholesterolemia. The patient has drinking and smoking history of: remote history of smoking and occasional alcohol consumption. Patient has a past medical history significant for anxiety, hypercholesterolemia, hypothyroidism. The patient denies a history of deep venous thrombus or pulmonary embolus. See separate history and physical for medication list. No prior treatment for varicose or spider veins. Current use of compression stockings. After review of nurse notes, history and physical exam I discussed at length the pathophysiology of venous hypertension and possible treatments, therapies and strategies available. We discussed at length the importance of elevating the lower extremities above the level of the heart, increased physical activity and compression stocking use. Ultrasound venous reflux study performed today was discussed at length with the patient. The report demonstrates incompetent right great saphenous vein, left anterior accessory vein, and bilateral incompetent branch saphenous varicosities. PHYSICAL EXAM: The right leg demonstrates prominent varicosities, several spider veins, no ulceration, no significant edema, no skin discoloration. The left leg demonstrates numerous prominent varicosities, a few spider veins, no ulceration, no significant edema, no skin discoloration. Both thighs, legs and feet were symmetrically warm to the touch. Good posterior tibial and dorsalis pedis pulses were present bilaterally. IMPRESSION: 1. Bilateral lower extremity venous insufficiency 2. Bilateral lower extremity varicose veins 3. No significant lower extremity subcutaneous edema 4. No flow significant arterial disease 5. CEAP: C2, EP, AP, IN PLAN: 1. Continued use of compression stockings 2. Elevated legs and increased physical activity symptomatic relief 3. Endovenous laser ablation of the right great saphenous vein and left anterior accessory saphenous vein. Microfoam chemical ablation of incompetent branch saphenous varicosities is recommended. Nurse notes, history and physical were reviewed and confirmed, see attached forms. The nurse was present throughout the physical exam and consultation Dictated by: Tate Matamoros M.D. on 12/09/2021 at 12:30 Approved by: Tate Matamoros M.D. on 12/09/2021 at 12:37 Normal [facility] VC VENOUS REFLUX CHESTER LMTon 0 12-09-2021 VC VENOUS REFLUX CHESTER LMT Patient: KAYLEIGH KATE Alvarado Exam Date: 12/09/2021 : 1975 Gender:F Ordering : DR RODRI LAI D.O. Admission #: [id number] Family : Order #: [id number] CLICK HERE TO VIEW EXAM CORRECTION made to CONCLUSION to include left GSV which was inadvertently left off of initial dictation. Corrected on: 12/10/2021; RADIOLOGY REPORT PROCEDURE: VEIN CENTER ULTRASOUND VENOUS REFLUX BILATERAL LIMTED COMPARISON: None. INDICATIONS: Pain co-occurrent and due to varicose veins of bilateral legs I83.813 TECHNIQUE: Duplex imaging of the lower extremity to assess the deep and superficial venous system for the presence of deep or superficial venous incompetence and to document the location and severity of disease. The study includes evaluation of the great saphenous vein (GSV), anterior accessory saphenous vein (AASV) and small saphenous vein (SSV). Patient scanned in reverse Trendelenburg and standing. FINDINGS: RIGHT LOWER EXTREMITY: Saphenofemoral Junction Reflux: Yes 7.7mm 5.4 sec GSV: Diam (mm) Reflux/ Time (sec) Proximal Thigh 6.8 Yes 5.3 Mid Thigh 4.1 Yes 3.7 Distal Thigh 8.2 Yes 5.5 Prox Calf 2.3 Yes 4.9 Mid Calf 1.7 Yes 6.1 Saphenopopliteal Junction Reflux: mm SSV: Proximal Calf 1.4 No Mid Calf 1.6 Yes 0.6 AASV: Not present Proximal Thigh Mid Thigh Distal Thigh Thrombi: Thrombus in proximal SSV. Compressibility: Non-compressible proximal SSV. Flow: No flow in area of thrombus. Preforator: Proximal, mid, distal calf, and distal thigh perforators. Largest is mid calf 4.0 mm. Tech Note: Incompetent epigastric vein and great saphenous vein. Varicose vein medial off GSV prox thigh, 3.1 mm with 5.6 seconds reflux. Incompetent proximal/medial calf varicose vein measures 4.5 mm with 5.4 seconds of reflux. Incompetent varicose vein posterior mid calf measures 2.0 mm with 3.6 seconds of reflux. LEFT LOWER EXTREMITY: Saphenofemoral Junction Reflux: Yes 8.0 mm 3.7 sec GSV: Diam (mm) Reflux/Time (sec) Proximal Thigh 6.0 Yes 3.9 Mid Thigh 2.7 No Distal Thigh 3.3 Yes 0.7 Prox Calf 2.7 No Mid Calf 1.6 No Saphenopopliteal Junction Relux: 4.1 mm Yes 3.9 SSV: Proximal Calf 2.6 No Mid Calf 1.5 No AASV: Proximal Thigh 7.0 Yes 5.5 Mid Thigh 3.0 Yes 0.6 Distal Thigh 4.0 Yes 0.3 Thrombi: None. Compressibility: Normal. Flow: Normal. Stringing Machine Operator: None. Tech Note: Incompetent AASV approximately 18 cm in length. Incompetent varicose vein anterior knee arising from AASV measures 5.4 mm with 6.5 seconds of reflux. Incompetent varicose vein posterior lateral calf proximal measures 6.9 mm with 1.7 seconds of reflux. CONCLUSION: 1. Incompetent right great saphenous vein. Endovenous laser ablation is recommended. 2. Incompetent left anterior accessory saphenous vein 18 cm in length. Endovenous laser ablation is recommended. 3. Incompetent left great saphenous vein. Endovenous laser ablation is recommended. 4. Bilateral incompetent branch saphenous varicosities. Microfoam chemical ablation is recommended. Dictated by: Tate Matamoros M.D. on 12/09/2021 at 11:38 Approved by: Tate Matamoros M.D. on 12/09/2021 at 11:49 Dictated by: Tate Matamoros M.D. on 12/10/2021 at 13:28 Approved by: Tate Matamoros M.D. on 12/10/2021 at 13:28 Normal The LIPID PROFILEon 07-06-2021 CHOL-HDL RATIO NORM SEE BELOW Normal The Comment on above: Result Comment: 3.3 - 4.4 LOW RISK 4.4 - 7.1 AVERAGE RISK 7.1 - 11.0 MODERATE RISK >11.0 HIGH RISK Performed By: #### L IPID #### [id number] [place] [id number]. Elizabeth Arora Cholesterol [Mass/Vol] 230 mg/dL Critically high <=200 [facility] Comment on above: Performed By: #### L IPID #### [id number] [place] [id number]. Elizabeth Arora Cholesterol in HDL [Mass/Vol] 68 mg/dL Normal [facility] Comment on above: Performed By: #### L IPID #### [id number] [place] [id number]. Elizabeth Arora Cholesterol in LDL [Mass/Vol] 136.4 mg/dL Normal The Comment on above: Performed By: #### L IPID #### [id number] [place] [id number]. Elizabeth Arora Cholesterol.total/Cholest jun in HDL [Mass ratio] 3.4 {ratio} Normal The Comment on above: Performed By: #### L IPID #### [id number] [place] [id number]. Elizabeth Arora HDL NORMAL > or = 60 mg/dl - LO W CARDIOVASCULAR RISK <40 mg/dl - HIGH CARDIOVASCULAR RISK Normal The Comment on above: Performed By: #### L IPID #### [id number] [place] [id number]. Elizabeth Arora LDL CALC NORMAL SEE BELOW Normal [facility] Comment on above: Result Comment: <100 mg/dl OPTIMAL 100 - 129 mg/dl NEAR OR ABOVE OPTIMAL 130 - 159 mg/dl BORDERLINE HIGH 160 - 189 mg/dl HIGH >190 mg/dl VERY HIGH Performed By: #### L IPID #### [id number] [place], [place] [id number]. Elizabeth Arora Triglyceride [Mass/Vol] 128 mg/dL Normal <=150 [facility] Comment on above: Performed By: #### L IPID #### [id number] [place], [place] [address]Qe. Elizabeth Arora VLDL CALC 25.6 mg/dL Normal [facility] Comment on above: Performed By: #### L IPID #### [id number] [place] [id number]. Elizabeth Arora Vital Signs Date Time Vital Sign Value Performing Clinician Vi kelley 05-08-2025 08:270400 Body height 165.1 cm Rodri Ball DO Work Phone: [facility] 05-08-2025 08:27-0400 Body mass index (BMI) [Ratio] 30.3 kg/m2 Rodri Ball DO Work Phone: [facility] 05-08-2025 08:27-0400 Body weight 82.78 kg Rodri Ball DO Work Phone: [facility] 05-08-2025 08:27-0400 Diastolic blood pressure 84 mm[Hg] Rodri Ball DO Work Phone: [facility] 05-08-2025 08:27-0400 Heart rate 61 /min Rodri Ball DO Work Phone: [facility] 05-08-2025 08:27-0400 Respiratory rate 12 /min Rodri Ball DO Work Phone: [facility] 05-08-2025 08:27-0400 Systolic blood pressure 129 mm[Hg] Rodri Ball DO Work Phone: [facility] 01-14-2025 13:37-0400 Body height 165.1 cm [facility] 01-14-2025 13:37-0400 Body mass index (BMI) [Ratio] 32.8 kg/m2 [facility] 01-14-2025 13:37-0400 Body weight 89.47 kg [facility] 01-14-2025 13:37-0400 Diastolic blood pressure 75 mm[Hg] [facility] 01-14-2025 13:37-0400 Heart rate 71 /min [facility] 01-14-2025 13:37-0400 Respiratory rate 12 /min [facility] 01-14-2025 13:37-0400 Systolic blood pressure 112 mm[Hg] [facility] 10-08-2024 09:46-0500 Body weight 90.72 kg Joan Nataprawira DO Work Phone: [facility] 10-08-2024 09:46-0500 Diastolic blood pressure 80 mm[Hg] Joan Nataprawira DO Work Phone: [facility] 10-08-2024 09:46-0500 Systolic blood pressure 126 mm[Hg] Joan Nataprawira DO Work Phone: [facility] 05-07-2024 08:35-0400 Body height 165.1 cm [facility] 05-07-2024 08:35-0400 Body mass index (BMI) [Ratio] 30.6 kg/m2 [facility] 05-07-2024 08:35-0400 Body weight 83.51 kg [facility] 05-07-2024 08:35-0400 Diastolic blood pressure 78 mm[Hg] [facility] 05-07-2024 08:35-0400 Heart rate 67 /min [facility] 05-07-2024 08:35-0400 Respiratory rate 12 /min [facility] 05-07-2024 08:35-0400 Systolic blood pressure 122 mm[Hg] [facility] 02-23-2024 11:41-0400 Body height 165.1 cm [facility] 02-23-2024 11:41-0400 Body mass index (BMI) [Ratio] 31.6 kg/m2 [facility] 02-23-2024 11:41-0400 Body weight 86.29 kg [facility] 02-23-2024 11:41-0400 Diastolic blood pressure 81 mm[Hg] [facility] 02-23-2024 11:41-0400 Heart rate 69 /min [facility] 02-23-2024 11:41-0400 Respiratory rate 12 /min [facility] 02-23-2024 11:41-0400 Systolic blood pressure 117 mm[Hg] [facility] 04-29-2023 08:30-0400 Body height 165.1 cm Rodri Ball Other [facility] [employer] Other 04-29-2023 08:30-0400 Body mass index (BMI) [Ratio] 30.15 kg/m2 Rodri Ball Other [employer] [facility] [employer] Other 04-29-2023 08:30-0400 Body weight 82.19 kg Rodri Ball Other [employer] Other 04-29-2023 08:30-0400 Diastolic blood pressure 80 mm[Hg] Rodri Ball Other [employer] Other 04-29-2023 08:30-0400 Respiratory rate 12 /min Rodri Ball Other [employer] Other 04-29-2023 08:30-0400 Systolic blood pressure 129 mm[Hg] Rodri Ball Other [employer] Other Encounters Encounter Date Encounter Type Care Provider Facility Start: 05-27-2025 End: 05-27-2025 ambulatory Chuyita Sanches Facility:[facility] Start: 05-15-2025 End: 05-15-2025 ambulatory Chuyita Sanches Facility:[facility] Start: 05-15-2025 End: 05-15-2025 ambulatory [facility] Start: 05-15-2025 End: 05-15-2025 Patient encounter procedure Chuyita Sanches [facility] Start: 05-10-2025 End: 05-10-2025 ambulatory Rodri Lai DO Work Phone: [facility] Work Phone: Start: 05-10-2025 End: 05-10-2025 Patient encounter procedure Rodri Lai DO -[facility] Work Phone: Start: 05-09-2025 ambulatory Facility:[facility] Start: 05-08-2025 End: 05-08-2025 ambulatory Rodri Lai DO Work Phone: [facility] Work Phone: Start: 05-08-2025 End: 05-08-2025 Patient encounter procedure Rodri Lai DO -[facility] Work Phone: Start: 05-08-2025 End: 05-08-2025 Patient encounter status Rodri Lai DO [facility] Start: 01-14-2025 End: 01-14-2025 ambulatory [facility] Work Phone: Start: 01-14-2025 End: 01-14-2025 Patient encounter procedure [facility] Work Phone: Start: 10-08-2024 End: 10-08-2024 Patient encounter status Joan Duffy DO Work Phone: [facility] Start: 10-08-2024 End: 10-08-2024 Periodic preventive med est patient 40-64yrs Joan Duffy DO Work Phone: [facility] Comment on above: Encounter for gyneco logical examination without abnormal finding (Primary Dx); Screening breast examination; Irregular menstrual cycle; Hot flushes, perimenopausal Start: 10-08-2024 End: 10-08-2024 ambulatory JOAN J NATKEITHADAN Not Available Start: 05-07-2024 End: 05-07-2024 ambulatory [facility] Work Phone: Start: 05-07-2024 End: 05-07-2024 Encounter for general adult medical examination without abnormal findings [facility] Start: 05-07-2024 End: 05-07-2024 Patient encounter procedure [facility] Work Phone: Start: 02-23-2024 End: 02-23-2024 ambulatory [facility] Work Phone: Start: 02-23-2024 End: 02-23-2024 Patient encounter procedure [facility] Work Phone: Start: 01-16-2024 Non-patient / Non-visit [facility] Work Phone: Start: 04-29-2023 End: 04-29-2023 ambulatory Rodri Lai Other [facility] [employer] Other Start: 04-29-2023 Encounter for genera l adult medical examination without abnormal findings Rodri Lai [facility] Start: 04-29-2023 Periodic preventive med est patient 40-64yrs Rodri Lai [facility] Start: 06-22-2022 End: 06-22-[address] SALVADOR LOZANO Facility:[facility] Start: 06-17-2022 End: 06-18-[address] RODRI LAI Facility:[facility] Start: 04-29-2022 Encounter for genera l adult medical examination without abnormal findings DR RODRI LAI [facility] Start: 04-28-2022 End: 04-29-[address] RODRI LAI Facility:[facility] Start: 04-28-2022 End: 04-29-2022 Encounter for general adult medical examination without abnormal findings DR RODRI LAI Facility:[facility] Start: 02-25-2022 End: 02-26-[address] LUIS HOOD Facility:[facility] Start: 02-24-2022 End: 02-25-[address] LUIS HOOD Facility:[facility] Start: 02-23-2022 End: 02-24-[address] LUIS HOOD Facility:[facility] Start: 02-17-2022 End: 02-18-[address] LUIS HOOD Facility:[facility] Start: 02-10-2022 End: 02-11-[address] LUIS HOOD Facility:[facility] Start: 12-28-2021 End: 12-29-[address] LUIS HOOD Facility:[facility] Start: 12-23-2021 End: 12-24-[address] LUIS HOOD Facility:[facility] Start: 12-09-2021 End: 12-10-[address] RODRI LAI Facility:[facility] Start: 07-08-[address] RODRI LAI Facili ty:[facility] Start: 07-06-2021 End: 07-07-[address] RODRI LAI Facility:[facility] Procedures Date Procedure Procedure Detail Performing Clinician Start: 10-05-2023 Microscopic observat ion [Identifier] in Cervix by Cyto stain Joan Duffy DO Work Phone: back surgery Chuyita Sanches Plan of Treatment Date Care Activity Detail Author Start: 10-05-2026 Screening for malign ant neoplasm of cervix [facility] Start: 05-08-2025 Patient referral [facility] Work Phone: Start: 06-17-2024 Influenza vaccination Influenz a Vaccine (#1) [facility] Start: 05-07-2024 Patient referral [facility] Work Phone: Start: 2014 Screening for malign ant neoplasm of breast Mammogram [facility] Start: 2004 Screening for malign ant neoplasm of cervix HPV/Cotest [facility] Start: 1974 Screening for malign ant neoplasm of colon [facility] metabo lic 1999 panel - Serum or Plasma [facility] Comprehensive metabo lic 2000 panel - Serum or Plasma [facility] Patient referral [facility] Work Phone: [facility] Immunizations Immunization Date Immunization Notes Care Provider Fa cilivanessa 07-29-2023 influenza virus vaccine, unspecified formulation Joan Nataprawira DO Work Phone: [facility] 10-07-2022 COVID-19 Moderna (BIvalent) Rodri Lai Other [facility] 08-17-2021 COVID-19 Vaccine Pfizer - Documentation Purposes Only Rodri Lai Other [facility] 01-16-2021 COVID-19 Vaccine Pfizer - Documentation Purposes Only Rodri Lai Other [facility] Comment on above: Reason for Medicatio n: Other (see comment) 12-26-2020 COVID-19 Vaccine Pfizer - Documentation Purposes Only Rodri Lai Other [facility] Comment on above: Reason for Medicatio n: Other (see comment) Payers Date Payer Category Payer Private Health Insurance [id number] 2022 Unknown [id number] [id number] 1974 Unknown [id number] 2.16.84 [id number] 1974 Unknown [id number] 2.16.84 [id number] 1974 Unknown [id number] 2.16.84 [id number] 1974 Unknown [id number] 2.16.84 [id number] 1974 Unknown [id number] 2.16.84 [id number] 1974 Unknown [id number] 2.16.84 [id number] 1974 Unknown [id number] 2.16.84 [id number] 1974 Unknown [id number] 2.16.84 [id number] 1974 Unknown [id number] 2.16.84 [id number] 1974 Unknown [id number] 2.16.84 0.1.853100.3.579.2.593 1974 Unknown [id number] 2.16.84 [id number] 1974 Unknown [id number] 2.16.84 [id number] 1974 Unknown [id number] 2.16.84 [id number] 1974 Unknown [id number] 2.16.8 [id number] 1974 Unknown [id number] 2.16.8 [id number] 1974 Unknown [id number] 2.16.8 [id number] 1959 Self-pay 1960 Unknown [id number] Unknown [id number] 2.16.84 [id number] Social History Date Type Detail Facility Sex Assigned At [employer] Other Start: 1975 Sex Assigned At Female F [facility] Start: 10-05-2023 End: 05-08-2025 Tobacco smoking status NEIS Never smoked tobacco [facility] Start: 10-05-2023 Tobacco use and exposure Smokeless tobacco non-user [facility] Start: 10-08-2024 Alcoholic beverage intake Current drinker of alcohol (finding) [facility] Start: 10-08-2024 History of Social function [facility] Start: 10-08-2024 Tobacco use panel [facility] Start: 1975 Sex assigned at Not on file [facility] Work Phone: Start: 02-20-2015 End: 01-14-2025 Sex Female (finding) [facility] Start: 05-15-2025 Tobacco smoking status Ex-smoker (fi nding) [facility] Tobacco smoking status Never [facility] Sexual Orientation [facility] Clinical Notes 02-25-2017 to 05-27-2025 Joan Duffy, DO - 10/08/2024 10:00 AM EST Note Date & Type Note Facility 05-27-2025 Note Progress Note-Physic skip Patient: KATE SAMANO Age: 49 years Sex: Female : 1975 Associated Diagnoses: None Author: Kassie LING, Hua Watkins Postoperative Information Postoperative disposition: Postoperative disposition: Home. Optimetrix number: Optimetrix number [id number]. Anesthetic utilized: Monitored anesthesia care. Health Status Allergies: Allergic Reactions (All) No Known Allergies Current medications: (Selected) Inpatient Medications Ordered Lactated Ringers IV Suzi 1000 mL 1,000 mL: 1,000 mL, IV, 100 mL/hr, Routine, Start date 05/27/25 7:30:00 EDT, 10 hour(s), Total volume (mL): 1,000, 83.6 kg, 1.96, m2 Sodium Chloride 0.9% IV Suzi 1000 mL 1,000 mL: 1,000 mL, IV, 20 mL/hr, Routine, Start date 05/27/25 6:44:00 EDT, 50 hour(s), Total volume (mL): 1,000, 83.6 kg, 1.96, m2 Zofran 4 mg/2 mL Injection: 4 mg = 2 mL, Injection, IV Push, Once PRN Nausea/Vomiting, Routine, Start date 05/27/25 7:30:00 EDT, 05/27/25 7:30:00 EDT promethazine additive 12.5 mg + Sodium Chloride 0.9% IV Suzi 50 mL (INT) 50 mL: Injection, IV Piggyback, Once PRN Nausea/Vomiting, Routine, Start date 05/27/25 7:30:00 EDT, 151.5 mL/hr, Infuse over 20 minute(s) Prescriptions Prescribed Levsin 0.125 mg SL Tab: 0.125 mg = 1 tab(s), Oral, QID, PRN for spasm, # 40 tab(s), Refills(s) 0, Pharmacy: [facility] #[id number], 165.1, cm, 05/15/25 14:06:00 EDT, Height/Length Dosing, 83.6, kg, 05/15/25 14:06:00 EDT, Weight Dosing Pantoprazole [address] Tab: 40 mg = 1 tab(s), Oral, Daily, # 30 tab(s), Refills(s) 2, Pharmacy: [facility] #[id number], 165.1, cm, 05/27/25 7:50:00 EDT, Height/Length Dosing, 83.6, kg, 05/27/25 7:50:00 EDT, Weight Dosing esomeprazole 40 mg oral powder for reconstitution, delayed release: 40 mg = 1 packet(s), Oral, Daily, # 30 packet(s), Refills(s) 3, Pharmacy: [facility][id number], 165.1, cm, 05/27/25 7:50:00 EDT, Height/Length Dosing, 83.6, kg, 05/27/25 7:50:00 EDT, Weight Dosing Documented Medications Documented citalopram: 40 mg, Oral, Daily, Refills(s) 0, Depression levothyroxine 88 mcg (0.088 mg) Tab: 88 mcg = 1 tab(s), Oral, Daily, Refills(s) 0, Home Medications (5) Active citalopram 40 mg, Oral, Daily esomeprazole 40 mg oral powder for reconstitution, delayed release 40 mg = 1 packet(s), Oral, Daily levothyroxine 88 mcg (0.088 mg) Tab 88 mcg = 1 tab(s), Oral, Daily Levsin 0.125 mg SL Tab 0.125 mg = 1 tab(s), PRN, Oral, QID Pantoprazole [address] Tab 40 mg = 1 tab(s), Oral, Daily Problem list: All Problems Bloating / SNOMED CT 776001191 / Confirmed Oral contraceptive use / SNOMED CT 03389918 / Confirmed Screen for colon cancer / SNOMED CT 986021215 / Confirmed Physical Examination Vital Signs 05/27/2025 9:35 EDT SpO2 100 % 05/27/2025 9:35 EDT Respiratory Rate Monitored 10 br/min 05/27/2025 9:35 EDT Heart Rate Monitored 56 bpm LOW 05/27/2025 9:35 EDT Systolic Blood Pressure 119 mmHg Diastolic Blood Pressure 73 mmHg Mean Arterial Pressure, Cuff 88 mmHg 05/27/2025 9:30 EDT Heart Rate Monitored 62 bpm Respiratory Rate Monitored 13 br/min SpO2 100 % 05/27/2025 9:30 EDT Systolic Blood Pressure 117 mmHg Diastolic Blood Pressure 82 mmHg Mean Arterial Pressure, Cuff 94 mmHg 05/27/2025 9:15 EDT Respiratory Rate Monitored 15 br/min SpO2 100 % 05/27/2025 9:15 EDT Heart Rate Monitored 69 bpm 05/27/2025 9:15 EDT Systolic Blood Pressure 114 mmHg Diastolic Blood Pressure 73 mmHg Mean Arterial Pressure, Cuff 87 mmHg 05/27/2025 9:10 EDT SpO2 99 % 05/27/2025 9:10 EDT Respiratory Rate Monitored 18 br/min 05/27/2025 9:10 EDT Heart Rate Monitored 67 bpm 05/27/2025 9:10 EDT Temperature Temporal Artery 36.5 DegC Systolic Blood Pressure 105 mmHg Diastolic Blood Pressure 67 mmHg Mean Arterial Pressure, Cuff 80 mmHg 05/27/2025 7:48 EDT SpO2 99 % 05/27/2025 7:48 EDT Respiratory Rate Monitored 15 br/min Systolic Blood Pressure 110 mmHg Diastolic Blood Pressure 77 mmHg 05/27/2025 7:48 EDT Temperature Temporal Artery 36.7 DegC Heart Rate Monitored 65 bpm Blood Pressure Location Left arm Pain Assessment: Controlled, Pain Assessment 05/27/2025 9:35 EDT Primary Pain Location Abdomen Verbal Descriptor Pain Scale No pain . General: Awake, Alert, Appropriate. Respiratory: Adequate air exchange, Non-labored. Cardiovascular: Stable, Normal peripheral perfusion. Neurological: Neurologic exam at baseline. No changes.. Assessment Anesthetic outcome No anesthetic complications noted. No nausea/vomiting. Review / Management Condition: Stable. Plan Transfer/Discharge: Transfer/Discharge Discharge when meets criteria ( From PACU to Ambulatory Surgery Unit, and To home ). [facility] Comment on above: Result Comment: Elec tronically Signed By: Kassie LING, Hua K.\.br\Date and Time Signed: 05/27/25 14:38 EDT 05-27-2025 Note Patient Education - Text Colonoscopy Care After Surgery Please read the instructions outlined below and refer to this sheet in the next few weeks. These discharge instructions provide you with general information on caring for yourself after you leave the hospital. Your doctor may also give you specific instructions. While your treatment has been planned according to the most current medical practices available, unavoidable complications occasionally occur. If you have any problems or questions after discharge, please call your doctor. ACTIVITY You may resume your regular activity, but move at a slower pace for the next 24 hours. Take frequent rest periods for the next 24 hours. Walking will help get rid of the air and reduce the bloated feeling in your abdomen (belly). No driving for 24 hours (because of the anesthesia (medicine) used during the test). You may shower. Do not sign any important legal documents or operate any machinery for 24 hours (because of the anesthesia used during the test). NUTRITION Drink plenty of fluids. You may resume your normal diet as instructed by your doctor. Begin with a light meal and progress to your normal diet. Heavy or fried foods are harder to digest and may make you feel nauseated (sick to your stomach). Avoid alcoholic beverages for 24 hours or as instructed. MEDICATIONS You may resume your normal medications unless your doctor tells you otherwise. WHAT YOU CAN EXPECT TODAY Some feelings of bloating in the abdomen. Passage of more gas than usual. Spotting of blood in your stool or on the toilet paper. FOLLOW-UP Your doctor will discuss the results of your test with you. SEEK IMMEDIATE MEDICAL ATTENTION IF: There is more than a spotting of blood in your stool. There is abdominal distention (your abdomen is swollen). There is vomiting. You have a temperature over 101.5 F. There is abdominal pain or discomfort that is severe or gets worse throughout the day. Gastroenterology Hiatal Hernia A hiatal hernia occurs when part of the stomach slides above the muscle that separates the abdomen from the chest (diaphragm). A person can be born with a hiatal hernia (congenital), or it may develop over time. In almost all cases of hiatal hernia, only the top part of the stomach pushes through the diaphragm. Many people have a hiatal hernia with no symptoms. The larger the hernia, the more likely it is that you will have symptoms. In some cases, a hiatal hernia allows stomach acid to flow back into the tube that carries food from your mouth to your stomach (esophagus). This may cause heartburn symptoms. The development of heartburn symptoms may mean that you have a condition called gastroesophageal reflux disease (GERD). What are the causes? This condition is caused by a weakness in the opening (hiatus) where the esophagus passes through the diaphragm to attach to the upper part of the stomach. A person may be born with a weakness in the hiatus, or a weakness can develop over time. What increases the risk? This condition is more likely to develop in: ??? Older people. Age is a major risk factor for a hiatal hernia, especially if you are over the age of 50. ??? women. ??? People who are overweight. ??? People who have frequent constipation. What are the signs or symptoms? Symptoms of this condition usually develop in the form of GERD symptoms. Symptoms include: ??? Heartburn. ??? Upset stomach (indigestion). ??? Trouble swallowing. ??? Coughing or wheezing. Wheezing is making high-pitched whistling sounds when you breathe. ??? Sore throat. ??? Chest pain. ??? Nausea and vomiting. How is this diagnosed? This condition may be diagnosed during testing for GERD. Tests that may be done include: ??? X-rays of your stomach or chest. ??? An upper gastrointestinal (GI) series. This is an X-ray exam of your GI tract that is taken after you swallow a chalky liquid that shows up clearly on the X-ray. ??? Endoscopy. This is a procedure to look into your stomach using a thin, flexible tube that has a tiny camera and light on the end of it. How is this treated? This condition may be treated by: ??? Dietary and lifestyle changes to help reduce GERD symptoms. ??? Medicines. These may include: ? Oypl-[id number]-[id number] antacids. ? Medicines that make your stomach empty more quickly. ? Medicines that block the production of stomach acid (H2 blockers). ? Stronger medicines to reduce stomach acid (proton pump inhibitors). ??? Surgery to repair the hernia, if other treatments are not helping. If you have no symptoms, you may not need treatment. Follow these instructions at home: Lifestyle and activity ??? Do not use any products that contain nicotine or tobacco. These products include cigarettes, chewing tobacco, and vaping devices, such as e-cigarettes. If you need help quitting, ask your health care provider. ??? Try to achieve (more content not included)... [facility] 05-27-2025 Note Progress Note-Antoine valdivia Patient: KATE SAMANO Age: 49 years Sex: Female : 1975 Associated Diagnoses: None Author: Kassie LING, Hua Sims. Preoperative Information Anesthesia Preop Info: Time patient last ate or drank 05/27/2025 00:00:00. Anesthesia history: Patient history: No prior anesthetic problems. Informed consent: Signed by patient. Re-evaluation prior to induction: Initial evaluation reviewed: No significant change. Review of Systems Respiratory: Negative except as documented in history of present illness. Cardiovascular: Negative except as documented in history of present illness. Health Status Allergies: Allergic Reactions (Selected) No Known Allergies, Allergies (1) Active Severity Reaction No Known Allergies None Documented Current medications: (Selected) Inpatient Medications Ordered Sodium Chloride 0.9% IV Suzi 1000 mL 1,000 mL: 1,000 mL, IV, 20 mL/hr, Routine, Start date 05/27/25 6:44:00 EDT, 50 hour(s), Total volume (mL): 1,000, 83.6 kg, 1.96, m2 Prescriptions Prescribed Levsin 0.125 mg SL Tab: 0.125 mg = 1 tab(s), Oral, QID, PRN for spasm, # 40 tab(s), Refills(s) 0, Pharmacy: [facility] #[id number], 165.1, cm, 05/15/25 14:06:00 EDT, Height/Length Dosing, 83.6, kg, 05/15/25 14:06:00 EDT, Weight Dosing Documented Medications Documented citalopram: Refills(s) 0, Depression levothyroxine 75 mcg (0.075 mg) Tab: 75 microgram = 1 tab(s), Oral, Daily, # 30 tab(s), Refills(s) 0, Thyroid, Home Medications (3) Active citalopram levothyroxine 75 mcg (0.075 mg) Tab 75 microgram = 1 tab(s), Oral, Daily Levsin 0.125 mg SL Tab 0.125 mg = 1 tab(s), PRN, Oral, QID , Medications (1) Active Scheduled: (0) Continuous: (1) Sodium Chloride 0.9% 1,000 mL 1,000 mL, IV, 20 mL/hr PRN: (0) Problem list: All Problems Bloating / SNOMED CT 139132501 / Confirmed Oral contraceptive use / SNOMED CT 34350008 / Confirmed Screen for colon cancer / SNOMED CT 269761868 / Confirmed, Active Problems (3) Bloating Oral contraceptive use Screen for colon cancer Histories Past Medical History: No active or resolved past medical history items have been selected or recorded. Family History: Hypertension Father Sister Diabetes mellitus type 1 Mother Procedure history: back surgery. Social History Social & Psychosocial Habits Alcohol 05/15/2025 Use: Current Type: Beer Frequency: 1-2 times per month Substance Abuse 05/15/2025 Risk Assessment: Denies Substance Abuse Tobacco 05/15/2025 Tobacco Use: Former smoker, quit more Smokeless tobacco use: Never Type: Cigarettes . Physical Examination No qualifying data available Airway: Mallampati classification: II (soft palate, fauces, uvula visible). Respiratory: Lungs are clear to auscultation, Respirations are non-labored. Cardiovascular: Regular rhythm. Review / Management Results review: No qualifying data available . Plan [place] [employer]esthes[employer] (ASA) physical status classification: Class II. Anesthetic Preoperative Plan: Anesthesia General, and -TIVA. [facility] Comment on above: Result Comment: Elec tronically Signed By: Kassie LING, Hua Watkins\.br\Date and Time Signed: 05/27/25 07:30 EDT 10-08-2024 History of Present illness Narrative Images from the original note were not included. Jona Duffy DO Obstetrics and Gynecology Name: Kate Rosas Date/Time of Service:10/08/2024 10:12 AM :1975 Age: 49 y.o. Subjective Kate Rosas is a 49 y.o. female who is here for a routine exam. Gynecologic Exam (Patient here for yearly. Denies problems. Has not had a period for 5 months then spotted around 09/16 that lasted for 2 weeks. Completed mammogram on 07/17/24- negative at the [facility]. Completed Cologuard in 2021- negative. ) Control Contraception: none. LMP: Patient's last menstrual period was 09/16/2024. Last Mammogram No results found for this or any previous visit. Current Outpatient Medications on File Prior to Visit Medication Sig Dispense Refill citalopram (CeleXA) 40 MG tablet Take 40 mg by mouth at bedtime levothyroxine (Synthroid, Levoxyl) 88 MCG tablet Take 88 mcg by mouth in the morning. Take on an empty stomach.. No current facility-administered medications on file prior to visit. Past Medical History: Diagnosis Date Fibroids Hypothyroid (CMS/HCC) Ovarian cyst Seasonal allergies Past Surgical History: Procedure Laterality Date LUMBAR DISCECTOMY 2004 L5 Family History Problem Relation Name Age of Onset Atrial fibrillation Father Social History Tobacco Use Smoking status: Never Smokeless tobacco: Never Substance Use Topics Alcohol use: Yes Drug use: Never OB History Para Term AB Living 0 0 0 0 0 0 SAB IAB Ectopic Multiple Live Births 0 0 0 0 0 No Known Allergies Review of Systems Constitutional: Negative. Respiratory: Negative. Cardiovascular: Negative. Gastrointestinal: Negative. Musculoskeletal: Negative. Skin: Negative. Neurological: Negative. Endocrine: Negative. Objective BP 126/80 Wt 200 lb LMP 09/16/2024 There is no height or weight on file to calculate BMI. Physical Exam Genitourinary: Urethral meatus normal. No lesions in the vagina. Right Labia: No lesions. Left Labia: No lesions. No vaginal discharge. Right Adnexa: not tender and no mass present. Left Adnexa: not tender and no mass present. No cervical lesion. Uterus is not tender. Uterus is retroverted. No urethral stress urinary incontinence with cough stress test present. Bladder is not tender. Rectum: No rectovaginal septum nodularity. Breasts: Right: No mass, nipple discharge, skin change or tenderness. Left: No mass, nipple discharge, skin change or tenderness. HENT: Head: Normocephalic and atraumatic. Mouth/Throat: Mouth: Mucous membranes are moist. Cardiovascular: Rate and Rhythm: Normal rate and regular rhythm. Pulmonary: Effort: Pulmonary effort is normal. Breath sounds: Normal breath sounds. Abdominal: General: Bowel sounds are normal. Palpations: Abdomen is soft. Musculoskeletal: General: No tenderness. Cervical back: Neck supple. Neurological: Mental Status: She is alert and oriented to person, place, and time. Skin: General: Skin is warm and dry. Psychiatric: Mood and Affect: Mood normal. Vitals and nursing note reviewed. Assessment/Plan 1. Encounter for gynecological examination without abnormal finding (Primary) Breast and pelvic exam performed. Discussed findings. Patient to contact the office with any changes to her gynecological condition. 2. Screening breast examination Mammogram uptodate this year 3. Irregular menstrual cycle Continue to observe, perimenopausal. Patient to contact the office with any concerns/questions 4. Hot flushes, perimenopausal Improving, taking estroven supplements OTC ICD-10-CM 1. Encounter for gynecological examination without abnormal finding Z01.419 2. Screening breast examination Z12.39 3. Irregular menstrual cycle N92.6 4. Hot flushes, perimenopausal N95.1 Follow up in about 1 year (around 10/08/2025) for Yearly. Joan Duffy DO 10/08/2024 10:12 AM documented in this encounter [facility] 02-25-2017 Evaluation note Diagnosis Onset Date Sinusitis noneactive Allergic rhinitis noneactive Gastro-esophageal reflux disease with esophagitis, without bleeding February 25, 2017 acute Generalized anxiety disorder acute Hypercholesterolemia acute Hypothyroid acute Screening for colon cancer n oneactive Wellness examination noneact ovi [facility] Work Phone: 1(860) 811-941105-12-2017 Evaluation note* Diagnosis Onset Date Resolution Status Admit Date Gastro-esophageal reflux dis ease with esophagitis, without bleeding February 25, 2017 acute January 14, 2025 1:17pm Generalized anxiety disorder acute January 14, 2025 1:17pm Hypercholesterolemia acute [place] h 2024 1:17pm Hypothyroid acute January 14, 2 025 1:17pm [facility] Work Phone: [phone]) 833-114205-12-2017 Evaluation note* Diagnosis Onset Date Resolution Status Admit Date Gastro-esophageal reflux dis ease with esophagitis, without bleeding February 25, 2017 acute May 08, 2025 8:22am Generalized anxiety disorder acute May 08, 2025 8:22am Hypercholesterolemia acute May 08, 2025 8:22am Hypothyroid acute May 08 8:22am Screening for colon cancer noneactiv e May 08, 2025 8:22am Wellness examination noneactive May 08, 2025 8:22am [facility] Work Phone: Evaluation + Plan note Future Appointments Appointment Date:05/27/2025 08:30:00 AM Scheduled Provider: Location:[facility] Appointment Type:Surgery FT [facility] Other Evaluation noteNo assessment information available [facility] Work Phone: Evaluywknq note* Diagnosis Encounter for gynecological examination without abnormal finding- Primary Screening breast examination Other screening breast examination Irregular menstrual cycle Hot flushes, perimenopausal documented in this [facility] Other Hospital course Narrative No data available for this section [facility] Hospital Discharge instructionsAmbulatory Orders* Referral to Gastroenterology Location: None Selected [facility] Work Phone: Hospital Discharge instructions No data available for this section [facility] Progress note No data available for this section [facility] Summary Purpose Family History No Family History Records Found Relationship Condition Age at Onset Recorded Date/T brian father Hypertension Unknown Not Specified Diabetes mellitus Unknown Relationship Condition Age at Onset Recorded Date/T brian father Hypertension Unknown mother Diabetes mellitus Unknown Advance Directives No Advanced Directives Records Found Advance Directive Response Recorded Date/ Time Advance Directives No November 17, 2023 10:29am Chief Complaint and Reason for Visit Chief Complaint Admit Date wellness May 08, 2025 8:22 am UA, stomach pain May 10, 2025 2:29 pm Reason for Visit Admit Date Gastro-esophageal reflux dis ease with esophagitis, without bleeding May 08, 2025 8:22am Generalized anxiety disorder May 08, 2025 8:22am Hypercholesterolemia May 08, 2025 8:2 2am Hypothyroid May 08, 2025 8:22 am Screening for colon cancer May 08 8:22am Wellness examination May 08, 2025 8:2 2am Chief Complaint Amb Documentation sneezing//pressure in head Chief Complaint sneezing//pressure i n head WELLNESS Reason for Visit Sinusitis Allergic rhinitis Gastro-esophageal reflux disease with esophagitis, without bleeding Generalized anxiety disorder Hypercholesterolemia Hypothyroid Screening for colon cancer Wellness examination Chief Complaint Admit Date follow up January 14, 2025 1:1 7pm Reason for Visit Admit Date Gastro-esophageal reflux dis ease with esophagitis, without bleeding January 14, 2025 1:17pm Generalized anxiety disorder January 14, 2025 1:17pm Hypercholesterolemia January 14, 2025 1: 17pm Hypothyroid January 14, 2025 1:1 7pm Chief Complaint Admit Date wellness May 08, 2025 8:22 am Additional Source Comments INFORMATION SOURCE (unrecogn ized section and content) DATE CREATED AUTHOR 06/28/2022 [facility] DATE CREATED AUTHOR AUTHOR'S ORGANIZ ATION 10/10/2024 [facility] EPIC DATE CREATED AUTHOR AUTHOR'S ORGANIZ ATION 05/10/2025 [facility] DATE CREATED AUTHOR AUTHOR'S ORGANIZ ATION 05/29/2025 [facility] DATE CREATED AUTHOR AUTHOR'S ORGANIZ ATION 06/02/2025 [facility] DATE CREATED AUTHOR AUTHOR'S ORGANIZ ATION 06/29/2025 [facility] Care Teams (unrecognized sec tion and content) Team Status: Active Member Role Status Dates Rodri Lai DO Primary Care Provider Active Team Status: Inactive Member Role Status Dates Rodri Lai DO Primary Care Provide r, Attending Provider Active Start: February 23, 2024 End: February 23, 2024 Team Status: Inactive Member Role Status Dates Rodri Lai DO Primary Care Provide r, Attending Provider Active Start: May 07, 2024 End: May 07, 2024 Team Status: Active Member Role Status Dates Rodri Lai DO Primary Care Provider Active Start: January 16, 2024 Ashley Montgomery Attending Provider Active Start: 2023 Vice President Financial Relationship Specialty Start Date End Date Rodri Lai MD [address] [place] [address] PCP - General Internal Medicine 10/08/24 Team Status: Inactive Member Role Status Dates Rodri Lai DO Primary Care Provide r, Attending Provider Active Start: January 14, 2025 End: January 14, 2025 Team Status: Inactive Member Role Status Dates Rodri Lai DO Primary Care Provider Active Start: May 08, 2025 End: May 08, 2025 Rodri Lai DO Attending Provider Active Sta rt: May 08, 2025 End: May 08, 2025 Team Status: Inactive Member Role Status Dates Rodri Lai DO Primary Care Provider Active Start: May 10, 2025 End: May 10, 2025 Rodri Lai DO Attending Provider Active Sta rt: May 10, 2025 End: May 10, 2025 Goals (unrecognized section and content) Goals may be documented in a n alternate sectionGoals may be documented in an alternate sectionGoals may be documented in an alternate sectionGoals may be documented in an alternate sectionGoals may be documented in an alternate section No data available for this section Reason for Visit (unrecogniz ed section and content) Reason Comments Gynecologic Exam Patient here for james hubbard. Denies problems. Has not had a period for 5 months then spotted around 09/16 that lasted for 2 weeks. Completed mammogram on 07/17/24- negative at [facility]. Completed Cologuard in 2021- negative. FOR RECORDS PERTAINING TO PATIENTS WHO ARE OR HAVE BEEN ENROLLED IN A CHEMICAL DEPENDENCY/SUBSTANCEABUSE PROGRAM, SOME INFORMATION MAY BE OMITTED. This clinical summary was aggregated from multiple sources. Caution should be exercised in using it in the provision of clinical care. This summary normalizes information from multiple sources, and as a consequence, information in this document may materially change the coding, format and clinical context of patient data. In addition, data may be omitted in some cases. CLINICAL DECISIONS SHOULD BE BASED ON THE PRIMARY CLINICAL RECORDS. [facility] [employer] [facility]. provides no warranty or guarantee of the accuracy or completeness of information in this document.
--- OUTSIDE RECORDS SUMMARY | 2025-07-23 15:57 | XMS_ITS | Clinical Summary ---
Author Organization [facility] Address [address] [place] [address] Care Team Providers Care Inkjet Operator Name Role Phone Rodri Lai DO Primary Care Provider [phone] Allergies No known active allergies Medications levothyroxine (Synthroid, Levoxyl) 88 MCG tablet Take 88 mcg by mouth in the morning. Take on an empty stomach.. 09/20/2023 Active citalopram (CeleXA) 40 MG tablet Take 40 mg by mouth at bedtime 09/20/2023 Active Family History Medical History Relation Name Comments Atrial fibrillation Father Relation Name Status Comments Father Mother Alive Social History Tobacco Use Types Packs/Day Years Used Date Smoking Tobacco: Never Smokeless Tobacco: Never Tobacco Cessation:Counseling Given: Not Answered Alcohol Use Standard Drinks/Week Comments Yes 0 (1 standard drink = 0.6 oz pur e alcohol) Comments No Sex and Gender Information Value Date Recorded Sex Assigned at Not on file Legal Sex Female 8:27 PM EDT Gender Identity Not on file Sexual Orientation Not on file Last Filed Vital Signs Vital Sign Reading Time Taken Comments Blood Pressure 126/80 10/08/2024 9:46 AM EST Pulse - - Temperature - - Respiratory Rate - - Oxygen Saturation - - Inhaled Oxygen Concentration - - Weight 90.7 kg (200 lb) 10/08/2024 9:46 AM EST Height - - Body Mass Index - - Plan of Treatment Upcoming Encounters Date Type Department Care Team (Late st Contact Info) Description 10/14/2025 10:45 AM EST Office Visit [facility] CASTILLO [address] [address] Joan Duffy, DO [address] [address] Health Maintenance Due Date Last Done Comments CT Colonography 1974 Colonoscopy 1974 Colorectal Cancer Screening 1974 FIT-DNA 1974 FIT 1974 FOBT 1974 Sigmoidoscopy 1974 HPV/Cotest 2004 Mammogram 2014 Influenza Vaccine (#1) 2025 07/29/2023, 2020, 07/22/2020 Cervical Cancer Screening 10/05/2026 Pap Smear 10/05/2026 10/05/2023 Procedures Procedure Name Priority Date/Time Associated Diagnosis Comments THINPREP TIS PAP AND HPV MRNA E6/E7 WITH REFLEX TO HPV 16,18/45 Routine 10/05/2023 12:23 PM EST Screening for malignant neoplasm of cervix Encounter for screening for human papillomavirus (HPV) from Last 3 Months or Most Recently Relevant to Health Maintenance Results * THINPREP TIS PAP AND HPV MRNA E6/E7 WITH REFLEX TO HPV 16,18/45 (10/05/2023 12:23 PM EST) CLINICAL INFORMATION [facility] Comment:None given LMP [facility] Comment:NONE GIVEN PREV. PAP [facility] Comment:NONE GIVEN PREV. BX [facility] Comment:NONE GIVEN SOURCE [facility] Comment:None given STATEMENT OF ADEQUACY [facility] Comment: Satisfactory for evaluation. Endocervical/transformation zone component absent. INTERPRETATION/RESU LT [facility] Comment: Cytology Results: Negative for intraepithelial lesion or malignancy. COMMENT [facility] Comment: This Pap test has been evaluated with computer assisted technology. GRID MOLDER [facility] Comment: [facility] [place], [place](ASCP) CT Screening Location: [place] [address] (ALWAYS MESSAGE) [facility] Comment: EXPLANATORY NOTE: The Pap is a screening test for cervical cancer. It is not a diagnostic test and is subject to false negative and false positive results. It is most reliable when a satisfactory sample, regularly obtained, is submitted with relevant clinical findings and history, and when the Pap result is evaluated along with historic and current clinical information. HPV MRNA E6/E7 Not Detected Not Detected [facility] Comment: Methodology: Web Operations Lead-Mediated Amplification This assay detects E6/E7 viral messenger RNA (mRNA) from 14 high-risk HPV types (16,18,31,33,35,39,45,51,52,56,58,59,66,68). Cervical sources are required for HPV testing. If a vaginal source from a patient who has had a total hysterectomy with removal of cervix was submitted, please contact the testing laboratory for alternative testing options. For additional information, please refer to http://education.[facility]/faq/DVW963s7 (This link if provided for information/ educational purposes only.) 10/05/2023 12:2 3 PM EST 10/06/2023 3:13 AM EST Narrative [facility] - 10/07/2023 10:42 AM EST AN UPDATE OR CORRECTION HAS BEEN MADE TO NAME Resulting Agency Comment Performing Organization Information Site ID: [id number] Name: [facility] Address: [address] [place] [address], [address] [place] [id number] Director: Mina Wetzel MD Joan Duffy DO LAB CYTOLOGY ORDERABLES Fi nal Result Performing Organization Address City/State/[facility] Co de Phone Number [facility] from Last 3 Months or Most Recently Relevant to Health Maintenance [place] [address] Care Teams Inkjet Operator Relationship Specialty Start Date End Date Rodri Lai DO PCP - General Internal Medicine 10/08/24
--- OUTSIDE RECORDS SUMMARY | 2025-07-23 15:57 | XMS_ITS | Encounter Summary ---
Author Organization [facility] Address [address] [place] [address] Care Team Providers Care Timber Hand Name Role Phone Unallocated, [facility]oms Provider Primary Care Provi kamran Rodri Lai DO Primary Care Provider [phone] Encounter Details Date Type Department Care Team (Late st Contact Info) Description 10/05/2023 Abstract [facility] GARCIA [address] [place] [phone] Joan Duffy DO [address] [place] [address] Social History Tobacco Use Types Packs/Day Years Used Date Smoking Tobacco: Never Smokeless Tobacco: Never Alcohol Use Standard Drinks/Week Comments Yes 0 (1 standard drink = 0.6 oz pur e alcohol) Comments No Sex and Gender Information Value Date Recorded Sex Assigned at Not on file Legal Sex Female 8:27 PM EDT Gender Identity Not on file Sexual Orientation Not on file documented as of this encounter Plan of Treatment Upcoming Encounters Date Type Department Care Team (Late st Contact Info) Description 10/14/2025 10:45 AM EST Office Visit [facility]ANIA GARCIA [address] [place] [address] Joan Duffy DO [address] [place] [address] [place] [address] documented as of this encounter Visit Diagnoses Not on filedocumented in this encounter Care Teams Timber Hand Relationship Specialty Start Date End Date Unallocated, Noms Provider, [address] [place] [address] PCP - General Family Medicine 10/05/23 10/07/24 Rodri Lai DO [address] [place] [address] PCP - General Internal Medicine 10/08/24 documented as of this encounter
== END 2025-07-23 15:49 | disposition home or self-care (01) ==
LOC: MAMMO 15:48
PROVIDERS: PCP Internal Medicine; Visit Provider Internal Medicine
DX: Z12.31 Encounter for screening mammogram for malignant neoplasm of breast (principal); Z80.8 Family history of malignant neoplasm of other organs or systems
CPT/HCPCS: 77063; 77067